=== PATIENT | male | born 1970 | race Caucasian/White ===

== ENCOUNTER 2019-04-29 06:13 | Inpatient (IN) ==
--- NOTE | 2019-04-29 06:38 | PROVIDER DOCUMENTATION ---
HPI-Neurological Disorder - General Stated Complaint: can't walk Time Seen by Provider: 04/29/19 06:18 Source: patient Unable to obtain history due to:: other (pt does not understand some questions/commands, gives vague answers) Allergies/Adverse Reactions: Patient Allergies Allergy/AdvReac Type Severity Reaction Status Date / Time Penicillins Allergy Severe ANAPHYLAXIS Verified 04/29/19 07:47 Home Medications: Home Medication List Medication Instructions Recorded Confirmed Last Taken Type Gabapentin [Neurontin] 300 mg PO TID #0 04/13/16 04/29/19 04/27/19 Rx Iron Fum,Ps Cmp/Vit C/Niacin 1 each PO DAILY 10/31/16 04/29/19 04/27/19 History [Integra Capsule] Sitagliptin Phosphate [Januvia] 100 mg PO DAILY 10/31/16 04/29/19 04/27/19 History Calcium Carbonate [Tums Extra 750 mg PO TID 11/02/16 04/29/19 04/27/19 History Strength] Albuterol Sulfate [Proair Hfa] 2 puff INH PRN PRN 04/29/19 04/29/19 Unknown History Bupropion HCl [Bupropion Xl] 1 tab PO DAILY 04/29/19 04/29/19 04/27/19 History Carvedilol [Coreg] 25 mg PO Q12H 04/29/19 04/29/19 04/27/19 History Clonidine HCl 1 tab PO BID 04/29/19 04/29/19 04/27/19 History Lactulose [Constulose] 15 ml PO TID 04/29/19 04/29/19 04/27/19 History Omeprazole 40 mg PO DAILY 04/29/19 04/29/19 04/27/19 History Valacyclovir [Valtrex] 1 tab PO DIRECTED 04/29/19 04/29/19 Unknown History - History of Present Illness-Neuro Nature of Presenting Problem: pt has had increasing weakness, memory loss for 3 days, was unable to get out of bed today, called EMS. He is a dialysis pt (MWF) Was recently dx with Shingles. Has been started on 2 new meds, not sure of nomes, or why. Saw PCP a week or so ago, was told needed to see neurologist for weakness. No headache nor fever known pharmacy check shows nothing filled since 01/16 Unknown time of onset. Severity: reports: mild Onset/Duration: reports: 3 days ago Timing: reports: getting worse Character of Altered Mental Status: reports: other (says memory is worse) Any recent trauma/injury?: reports: none New weakness or altered sensation location:: reports: general (diffuse) (LE>UE) Cognitive Baseline: alert, oriented x3 Associated Symptoms: reports: trouble walking, weakness. denies: short of breath, headache, nausea, vomiting Similar Symptoms Previously?: No Recently seen or treated by another doctor?: Yes Review of Systems - Adult - REVIEW OF SYSTEMS - ADULT ROS:: not sure of reliability Constitutional: reports: see HPI Eyes: reports: blurred vision (admits no acute change) Ears, Nose, Mouth & Throat: reports: no symptoms reported Cardiovascular: reports: no symptoms reported Respiratory: reports: no symptoms reported Gastrointestinal: reports: no symptoms reported Genitourinary: reports: no symptoms reported Musculoskeletal: reports: see HPI Integumentary: reports: see HPI Neurological: reports: see HPI Psychiatric: reports: no symptoms reported Endocrine: reports: no symptoms reported Past History - Adult - PAST MEDICAL HISTORY-ADULT Review of Records: reports: Nursing Assessment Review, Medications Reviewed, Social history reviewed & non-contributory. Major Childhood Illnesses: reports: denies history Cardiovascular: reports: CHF, HTN, hyperlipidemia Genitourinary: reports: kidney disease Endocrine/Immune: reports: Diabetes - PRIOR SURGERIES/PROCEDURES Surgical/Procedure History: reports: none - PRIOR HOSPITALIZATIONS Prior Hospitalizations: reports: none - IMMUNIZATION STATUS Childhood Immunizations: See Nurse Assessment Flu Vaccine: See Nurse Assessment - FAMILY HISTORY Family History: reviewed, not pertinent Physical Exam- Neurological - Physical Exam-Neuro Initial Vital Signs Reviewed: Yes General Appearance: appears well, mild distress, other (freq says, or appears that does not understand) Eye Exam: bilateral eye: normal inspection, PERRL, EOMI HENMT: normocephalic/atraumatic, moist mucous membranes, normal ENT inspection, pharynx normal Head Injury: no evidence of injury Neck: full range of motion, supple Respiratory: lungs clear, normal breath sounds, no pleuratic chest pain, no respiratory distress, no accessory muscle use Cardiovascular: regular rate, rhythm, no edema, no murmur Abdominal Exam: non tender, soft Peripheral Pulses: radial (R): 2+, radial (L): 2+ 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 CN II-XII intact) Coordination/Gait: other (could not understand to perform) Motor/Sensory: no sensory deficit, other (sl weak on extension of UE, no pronator drift. Could not lift LLE, RLE was weak on extension) Neurologic: motor weakness (see above.) Integumentary: normal color, normal turgor, warm/dry Psych/Mental Status: other (abnl mood, affect was labile. Could not remember many details, many times said did not understand. Many other times, appeared to not understand, or only understood with difficulty after repeating, explaining) - Glascow Coma Scale Best Motor Response: (6) obeys commands Progress - PLAN OF CARE/RESULTS Progress/Plan/Lab Results: Vital Signs - 8 hr 04/29/19 06:16 Temperature 97.9 F Pulse Rate 90 Respiratory Rate 20 Blood Pressure 223/119 O2 Sat by Pulse Oximetry 98 Orders Category Date Time Status Nursing- Obtain EKG ONCE Care 04/29/19 06:42 Completed CHEST-1 VIEW [RAD] Stat Exams 04/29/19 06:[address] HEAD W/O CONTRAST [CT] Stat Exams 04/29/19 06:42 Ordered CBC WITH DIFF [HEME] Stat Lab 04/29/19 06:35 Results COMPREHENSIVE METABOLIC PANEL [CHEM] Stat Lab 04/29/19 06:35 Received URINALYSIS W/POSS RFLX CULT [URINALYSIS] Stat Lab 04/29/19 06:42 Uncollected URINE DRUG SCREEN Stat Lab 04/29/19 06:42 Uncollected EKG [EKG] Stat Ther 04/29/19 06:42 Ordered Result Diagrams: 04/29/19 06:35 04/29/19 07:35 - EKG 1 Time of EKG reading by physician:: 06:32 EKG Read and Signed by:: Guido Cali EKG Interpretation (*Must complete 3 of following elements*): Normal Rate: 88 Rhythm: NSR [place]: normal QRS: normal ST Wave: normal - CT/MRI 1 CT Study: Head Impression: Abnormal, See EMR Report (rt sided lacunar infarct) - CONSULTS/PCP/HOSPITALIST Notification #1 *Consult/PCP/Hospitalist*: Dr Reece Time Discussed: 09:08 Consult Disposition: Will see in ED, Admit - CHANGE OF SHIFT REPORT (ED Provider) 1 Report Given and Care Transferred to:: [facility] Time of Transfer: 07:00 Departure - Departure Date of Disposition Decision: 04/29/19 Time of Disposition Decision: 09:08 DIAGNOSIS: Hyperkalemia, Renal failure (ARF), acute on chronic, CVA (cerebral vascular accident) Disposition: ADMITTED INPATIENT Certified Medical Emergency: Emergent Condition: Fair Referrals and Follow-Ups: William Mercado Jr, MD [Primary Care Provider] - - Critical Care Note This patient required my direct & personal management of CC.: No Attestation - Physician/ WENDI Attestation Patient care was provided by Advanced Practice Provider:: No The physician spent face to face time with patient:: Yes Advanced Practice Provider documentation review:: Supervising physician onsite and consulted in the evaluation and care of this patient. The physician did have a face to face encounter with the patient. - NIH Stroke Scale NIH Type: Initial Evaluation Level of Consciousness: 0-Alert LOC Commands (ask to open & close eyes;make a fist, let go): 2-Both Incorrect (could not understand commands) Best Gaze (horizontal eye movement): 0-Normal Visual (use finger movement, counting or visual threat): 0-No Visual Loss Facial Palsy (show teeth or raise eyebrows & close eyes tght: 0-Symmetrical Movement Motor Function-left arm: 0-Normal Motor Function-right arm: 0-Normal Motor Function-left le-No Effort Against Hammond Motor Function-right le-Drift Limb Ataxia(dvfpwy-[id number]-iomhrx, or heel to [place]): 0-Untestable Sensory(pin prick to face,arms,trunk,legs-compare side/side): 0-No Ataxia Best Language(name item/read sentence.Ex-Down to Earth): 1-Mild to Moderate Aphasia Dysarthria(Pt read words or say words Ex.Mama,Tip-Top,Thanks: 1-Mild-Mod Slurring Words Stroke tPA Guidelines - Inclusion Criteria for IV tPA 18 years old or older: Yes Ischemic stroke with measurable deficit: No Onset <3 hours ago *OR* 3-4.5 hours ago: No
[2019-04-29 07:00] LABS: BASO# 0.05 X1000 (0.0-0.2); BASO% 0.5 % (0.0-0.8); EOS# 0.28 X1000 (0.0-0.7); EOS% 3.1 % (0.0-10.0); LYMPH# 1.91 X1000 (1.2-3.4); LYMPH% 20.9 % (20.5-51.1); MCH 30.9 PG (27-31); MCHC 32.7 g/dL (33-37); MCV 94.6 FL (81-99); MONO% 13.1 % (1.7-9.3); MPV 10.1 FL (7.4-10.4); NEUT% 62.4 % (42.2-75.2); PLT 84 X1000 (130-400); RBC 5.18 XMIL (4.7-6.1); RDW 14.2 % (11.5-14.5); WBC 9.14 X1000 (4.8-10.8)
[2019-04-29] MEDS ORDERED: APRESOLINE IV ONE ×2 (07:03→09:34)
--- NOTE | 2019-04-29 07:32 | Diag Imaging Result Doc PS360 ---
EXAM: CT HEAD W/O CONTRAST INDICATION: AMS TECHNIQUE: This exam was performed using automated exposure control, adjustment of mA or kV according to patient size, and/or use of iterative reconstruction technique. COMPARISON: 03/11/2016 FINDINGS: There is a tiny hypodense focus involving the right basal ganglion suggesting a small lacunar infarct. It was not present on the previous study in 2016. Although it is somewhat difficult to fully characterize given its small size, it has a chronic appearance. Please correlate clinically. There is no definite acute infarct given the limited sensitivity of CT versus MRI, otherwise. There is no discrete intracranial mass, mass effect, or intracranial hemorrhage. There is severe chronic right maxillary sinusitis and milder right ethmoid sinusitis that is similar to the previous study. Surrounding soft tissues and bony structures are essentially unremarkable, otherwise. IMPRESSION: Miniscule lacunar infarct involving the right basal ganglion that is not seen on the previous study. Nonetheless, it appears to be chronic. Please see the above discussion. No definite acute pathology, otherwise. Electronically signed by Ilia Aburto 04/29/2019 7:30 AM
--- NOTE | 2019-04-29 08:04 | Diag Imaging Result Doc PS360 ---
CHEST-1 VIEW - 04/29/2019 INDICATION: AMS COMPARISON: 10/01/2018 FINDINGS: There is pulmonary vascular congestion similar to the prior exam. No infiltrates or edema. Heart size is normal. No pneumothorax or pleural effusion. IMPRESSION: Pulmonary vascular congestion. Electronically signed by William Haas 04/29/2019 8:02 AM
[2019-04-29 08:16] LABS: ALB/GLOB RATIO 0.9; ALBUMIN 4.2 g/dL (3.5-5.0); CALCIUM 9.6 mg/dL (8.8-10.2); TOTAL BILIRUBIN 0.73 mg/dL (0.20-1.00); TOTAL PROTEIN 8.9 g/dL (6.3-8.3)
[2019-04-29 08:35] LABS: POTASSIUM 6.5 mmol/L (3.5-5.1)
[2019-04-29 08:36] LABS: CREATININE 11.2 mg/dL (0.7-1.2)
--- NOTE | 2019-04-29 09:09 | EKG Report ---
Test Performed on : 04/29/2019 06:32:45 AM Test Reason : AMS Blood Pressure : / mmHG Vent. Rate : 088 BPM Atrial Rate : 088 BPM P-R Int : 176 ms QRS Dur : 102 ms QT Int : 366 ms P-R-T Axes : 060 050 058 degrees QTc Int : 442 ms Normal sinus rhythm. Normal ECG When compared with ECG of 22-JUN-2017 11:27, No significant change was found Unconfirmed Result
[2019-04-29] MEDS ORDERED: ASPIRIN PO ONE (09:11)
[2019-04-29] MEDS: APRESOLINE IV PRN (12:12)
[2019-04-29] MEDS ORDERED: TIGHT: 0.2 ML/HR FOR DIALYSIS MISC PRN (12:55)
[2019-04-29] MEDS ORDERED: HEPARIN IV PRN (12:55)
[2019-04-29] MEDS ORDERED: NS 2,000 ML MISC PRN (12:55)
--- NOTE | 2019-04-29 13:57 | NEPHROLOGY CONSULTATION ---
DATE: 04/29/2019 ASSESSMENT: Chronic kidney disease stage 5D and a recent cerebrovascular accident. He has hyperkalemia. We will plan dialysis this morning to address his hyperkalemia. We will use low blood flow and decreased time to 3 hours in order to minimize changes in intracranial pressure. cc: MD Aftab Christopher MD
[2019-04-29] MEDS ORDERED: NS IV ONE ×2 (15:00→20:00)
[2019-04-29] MEDS ORDERED: ZOVIRAX IV ONE ×2 (15:00→20:00)
[2019-04-29] MEDS ORDERED: LABETALOL IV ONE (15:25)
[2019-04-29 15:31] LABS: APPEARANCE CLEAR; WBC BF 0 /cumm
[2019-04-29 15:32] LABS: RBC BF 4 /cumm
--- NOTE | 2019-04-29 16:33 | CONSULTATION ---
DATE OF CONSULTATION: 04/29/2019 HISTORY: Mr. Solomon has had an altered mental state with reported generalized weakness. He is not able to provide a consistent valid history. He told me that he thinks he was doing well a week ago. He started having skin lesions over the right ear and right forearm several days ago. A diagnosis of shingles was made. He has been treated with valacyclovir at low dose due to his chronic renal failure. He reports having headache in the last few days. He believes his vision has been chronically poor but is worse in recent days. He began to feel weak all over. He did not notice weakness in 1 limb or on 1 side of his body. He believes there was never unconsciousness or altered awareness. He presented to the hospital and was admitted. He reports no prior diagnosis of stroke, seizure, serious head injury, illicit drug use, alcohol abuse, medication intoxication. He reports he has never had an episode like this before. He reports he was found to have fever at the dialysis center some time ago, but he is not certain that was recent. He is afebrile here today. He believes he has not been to dialysis in a few days, possibly longer. DATA: Workup here includes noncontrast CT of the head showing tiny old right basal ganglia lacune which was not present on 2016 scan. On my view, the scan does not show definite evidence of cortical inflammation. There is no evidence of bleeding. VITAL SIGNS: Afebrile. Systolic blood pressures have been 240s recently, 260s this morning. LABORATORY: Lab shows WBC 9000, sodium 132, potassium 6.5, creatinine 11.2, BUN 55. There was not urine drug screen reported. MEDICATIONS: Home medicine list in the computer includes albuterol inhaler, bupropion, carvedilol, clonidine, gabapentin 300 mg t.i.d., iron and vitamin, lactulose, omeprazole, Januvia, valacyclovir as above. PHYSICAL EXAMINATION: On exam, Mr. Solomon is supine, awake, alert. His attention seemed to fluctuate. I did not witness obvious hallucinatory behavior or periods of unresponsiveness or altered consciousness. He reported "seeing faces" with no one present. He did not confabulate. He reports inability to recognize bright light in the left eye. He can count fingers inconsistently with the right eye. He was not attentive to testing visual field more carefully. Both pupils react directly to bright light. Extraocular movements are full. Facial motility is symmetric. Tongue is midline, bright red (he reports he recently finished eating red Jell-O). Palate is midline. He can hear. His effort fluctuates significantly on motor testing. Limb tone is symmetric. Plantar response is silent bilaterally. Reflexes are absent at the knees and ankles, trace at the wrists bilaterally. He limb movements were coarse, not fluid. He was accurate without tremor on [id number]-iw-qiiv, but arm movement was very coarse. He was very inconsistent when asked to maintain limbs above the bed against gravity. He was able to raise his left leg, right leg and each arm. He reports inability to recognize pinprick and light touch over the feet. He reports inability to recognize great toe movement when testing proprioception bilaterally. He reports diminished pinprick appreciation over the hands and normal pinprick appreciation over the chin. He was not attentive to sensory testing along the trunk and provided very inconsistent responses posteriorly and anteriorly. He reported more consistent good pinprick appreciation above the clavicle bilaterally. Head is unremarkable. Neck is supple. IMPRESSION: 1. This appears to be a global encephalopathy. Etiology is not clear to me. There may be multiple factors including a component of hypertensive encephalopathy and significant metabolic abnormalities which may be contributing. He was not able to convince me that he takes his medicines correctly or that he has or has not used illicit substance. We might consider EEG later to look for markers for viral encephalitis. We might consider brain MRI when practical, but I do not think he would cooperate now and I am reluctant to sedate him for an MRI at this point. CSF is the clear next step. 2. Clinical evidence of peripheral neuropathy. This might be chronic diabetic neuropathy. Acute idiopathic demyelinating polyneuropathy could explain some of the peripheral nerve deficit, but would not account for the HOT STONE SETTER changes. 3. Very inconsistent sensory findings across the trunk, possible recent onset incontinence. We might consider spine MRI to exclude cord lesion. With concern for zoster or other herpetic HOT STONE SETTER infection, reported recent fever, apparent new onset encephalopathy, we need to go ahead with lumbar puncture. I phoned father who is the contact listed in the chart and was not able to reach him. The patient reports he has a son, but he cannot provide contact information for son. As discussed with Dr. Wilson, we will proceed with LP on an emergency basis. Further plans will depend on CSF report and on his clinical course. I hope encephalopathy will be significantly improved with control of blood pressure. Thanks for asking Neurology to see Mr. Solomon. cc: MD Aftab Brown III, MD MTDD
[2019-04-29 16:40] LABS: GLUCOSE CSF 66 mg/dL (39-75)
[2019-04-29 16:43] LABS: PROTEIN CSF 41.5 mg/dL (15-45)
--- NOTE | 2019-04-29 16:54 | INFECTIOUS DISEASE CONSULT REP ---
DATE: 04/29/2019 CONCLUSION: The patient has shingles involving the right arm and the ear. The shingles on the arm have crusted over. The patient now is complaining of headache and he has an altered mental status and I am concerned that the shingles which is caused by the varicella zoster virus is now involving the patient's brain. RECOMMENDATIONS: I have ordered IV acyclovir to be given to the patient by the pharmacy. I have ordered studies for the cerebral spinal fluid also. PRESENT ILLNESS: I was unable to obtain a history from the patient. No family members present. What I did find was in the computer. He has he developed shingles on his arm arms few days a few days ago and they all have appeared to crust over. He following that had an altered mental status. His CBC shows a white count of 9140, hemoglobin 16, platelet count 84,000 creatinine is 11.2. GFR is 5. Alkaline phosphatase is 138. Chest x-ray shows pulmonary venous congestion. Head CT scan shows a miniscule lunar infarct and chronic maxillary and ethmoid sinusitis. PAST MEDICAL HISTORY: The patient also has congestive heart failure, hypertension, hyperlipidemia, end-stage renal disease for which the patient is on hemodialysis. PAST SURGICAL HISTORY: Positive for creating a left upper extremity AV fistula for dialysis. REVIEW OF SYSTEMS: Unable to be obtained from the patient. PREVIOUS HOSPITALIZATIONS AND OPERATIONS: The information from the emergency room says that the patient does not have surgical or procedure history. However, as mentioned above he does have an AV fistula in his left arm. ALLERGY: Penicillin. HOME MEDICATIONS: Include albuterol inhaler, bupropion, carvedilol, clonidine, gabapentin, lactulose, omeprazole and Valtrex. PHYSICAL EXAMINATION: Vital Signs: Temperature is 98 degrees, pulse 86, respirations 15, blood pressure is 224/106. General: This is an ill-appearing middle-aged male. He is in no acute distress. Head/eyes/ears/nose/throat: No drainage noted from the nose or ears. His sinuses were not tender. I did not see any white patches in his mouth. Neck: The patient seemed to move his neck without having pain. Lungs: Clear to auscultation. Cardiovascular: Regular heart rate. Abdomen: Soft, nontender. Extremities: The patient's left arm has an AV fistula in it and it is functional. Neurologic: The patient at times followed my request to move his extremities and at other times did not. He did talk at times but it did not make sense to me what he was saying. The patient did move his arms and legs to request, but it was mainly only his feet that he moved and not the whole leg and he only minimally moved his arms. The patient was unable to carry on a coherent conversation. Integument: The patient's shingles lesions on the right arm have all crusted over. Thank you for the consult. cc: MD Aftab Salinas MD
--- NOTE | 2019-04-29 17:01 | OPERATIVE NOTE ---
PROCEDURE DATE: 04/29/2019 PROCEDURE: Lumbar puncture was done at the L4 space. Crystal clear fluid was obtained and sent to the lab. Opening pressure was 23 to 24 cm of CSF (he is quite hypertensive). He tolerated LP well. cc: MD Aftab Brown III, MD
--- NOTE | 2019-04-29 19:27 | NEPHROLOGY CONSULTATION ---
DATE: 04/29/2019 REASON FOR CONSULTATION: Assistance with management. Altered mental status. HISTORY OF PRESENT ILLNESS: Mr. Solomon is a 48-year-old white male who is well known to us from the outpatient dialysis arena. He has diabetes, hypertension, COPD. I saw him on last Saturday at the dialysis unit at which time he was complaining of pain on his right elbow. His exam demonstrated multiple erythematous based vesicles over the elbow and extending on the medial surface along the ulna. He also had vesicles on his right ear. I ordered valacyclovir 500 mg daily to his outpatient pharmacy. He has been having a hard time with worsening mental state and confusion and weakness. Ultimately he came to the emergency room today because of these symptoms. He told me that the only muscle he can move are his head. He does describe a headache. He is hallucinating. He is anxious, tearful, etc. He was concerned that he had a stroke. PAST MEDICAL HISTORY: As above. HOME MEDICATIONS: Include gabapentin 300 t.i.d.; this is new, Integra, sitagliptin, calcium carbonate, albuterol, bupropion, clonidine, omeprazole, valacyclovir, lactulose, carvedilol. ALLERGIES: Penicillin. SOCIAL: His father's been helping to take care of him lately. FAMILY HISTORY: Otherwise noncontributory. REVIEW OF SYSTEMS: Otherwise noncontributory. PHYSICAL EXAMINATION: Vital Signs: Blood pressure 224/106, heart rate 86, respirations 15, afebrile. General: He is anxious, tearful, alert white male no in no respiratory distress. Skin: Warm and dry. He has multiple vesicles an discoloration on the right arm. Pupils are equal. Conjunctivae are injected. Oropharynx is clear. Neck: Supple. Neck veins are not visible. He is able to touch his chin to his chest without pain. Heart: PMI nondisplaced. Regular rate and rhythm without gallops or murmurs. Lungs: Have equal breath sounds. No crackles or wheezes. Abdomen: Soft, nontender. Bowel sounds are present. Extremities: No edema, clubbing or cyanosis. Neurologic Examination: He is unable to lift any extremity off the bed but he can move hands and feet. He is able to talk without difficulty. IMPRESSION: Altered mental status. I do not think this is a stroke. I am concerned about him having a viral central nervous system infection versus drug affects from valacyclovir and gabapentin. We will stop these 2 medicines and I have spoken directly with Dr. Wilson and Dr. Gamino for their assistance with management and treatment. He will need dialysis today and we will arrange this. He is moderately hyperkalemic. He did not get his full treatment on Saturday because his shingles were hurting. His blood pressure is markedly abnormal. I will add back oral medication, but he may require IV nicardipine if his pressure cannot be rapidly controlled. cc: MD Aftab Christopher MD
[2019-04-29] MEDS: COREG PO SCH (20:10)
[2019-04-29] MEDS: CATAPRES PO SCH (20:10)
--- NOTE | 2019-04-29 22:34 | HISTORY AND PHYSICAL ---
CHIEF COMPLAINT: Altered mental status, possible stroke. HISTORY OF PRESENT ILLNESS: He is a 48-year-old, white gentleman, was not seen in my office for almost more than one year, 03/19/2018. Obviously, he has been going to dialysis three times a week as per Dr. Sage, on the left side. He started having a rash in the right side. The clinical picture is compatible with some type of shingles. He was brought in while he was treating for shingles with altered mental status, incoherent, not able to follow with verbal commands. Emergency room physicians called me this morning. He has a possible stroke on the right side. I did see the patient in the morning. He was completely confused and not able to follow with verbal commands. His blood pressure was running high. He is due for dialysis. The patient was admitted for altered mental status. In the meantime, Dr. Sage did hemodialysis for hyperkalemia, elevated renal function tests. He was seen by Dr. Gamino, Dr. 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 I have seen the patient a second time in the evening. He is totally coherent, follows with verbal commands. He has some blister rash in the right forearm, right arm. He has only one blister on the tragus of the right ear. It does not appear to be [place] Cali syndrome. There is no involvement of the facial nerve. The distribution of the rash most looks like C5-C6 distribution of the cervical spine. Obviously, the patient had an LP done, started on IV acyclovir, and he is already getting significant improvement. As a result, he has been hospitalized. PAST MEDICAL HISTORY: End-stage kidney disease on hemodialysis three times a week, type 2 diabetes, hypertension, chronic hepatitis C virus, nicotine dependency. PAST SURGICAL HISTORY: Left forearm AV graft. MEDICATIONS: Neurontin 300 t.i.d., Integra 1 capsule daily, Januvia 100 daily, calcium carbonate 750 mg t.i.d., ProAir HFA 1 puff q.6, bupropion 300 mg daily, clonidine 0.1 p.o. b.i.d., Prilosec 40 daily. He was given Valtrex, lactulose 15 mL p.o. b.i.d., Coreg 25 q.12. ALLERGIES: Reported to penicillin. SOCIAL HISTORY: Single, two sons and one daughter. Smoking one pack a day. No alcohol. He was using crystal methamphetamine, quit in February 2016. He is disabled since he is on dialysis. FAMILY HISTORY: Father is [id number], stable. Mom of lung cancer. HEALTH MAINTENANCE: He has not had a physical since last year in my office. He had a flu vaccine in 2018, pneumococcal in 2015, last eye exam in May 2017, by Dr. Whitfield. REVIEW OF SYSTEMS: Initially unable to obtain. In the evening, he is mentally stable. No headache. No vision problem. He is talking on the phone. No neck pain. Cardiopulmonary: No chest pain, shortness of breath. Gastrointestinal: No nausea, vomiting, abdominal pain. He has feelings of weakness and the rash in the right side of the arm. No obvious weakness in the legs and the arms noted. No headaches. No seizures. PHYSICAL EXAMINATION: VITAL SIGNS: Temperature is 97.9 degrees, pulse 68, blood pressure is coming down to 198, and 206 pounds. HEENT: Atraumatic, normocephalic. Pupils equal, reactive to light. He had a small blister on the tragus on the right ear, and blisters noted in the right arm and right forearm. NECK: Supple. CHEST: Bilateral air entry. HEART: Sounds are regular. No murmur. ABDOMEN: Belly is soft, nontender. Good bowel sounds. RECTAL: Deferred. EXTREMITIES: No peripheral edema, cyanosis. NEUROLOGIC: No obvious neurological deficits. INVESTIGATIONS: CBC: White cell count 9.1, hematocrit 49, platelet 84,000. Sodium 132, potassium 6.5, chloride 92, BUN 55, creatinine 11.2. Liver function test was normal. CT head: Minute lacunar infarct of right basal ganglia appears to be chronic. EKG: Normal sinus, no significant changes for ischemia noted, tall P waves noted in the precordial leads. Chest x-ray: Mild congestion, otherwise stable. ASSESSMENT AND PLAN: 1. A 48-year-old, white gentleman, with a known history of chronic kidney disease, on dialysis, came in with altered mental status with shingles on the right arm, C5-C6 distribution, and is not very significant for [place] Cali syndrome. Treating with IV acyclovir by Dr. Melo Wilson. Neurology consult and Dr. Wilson consult was appreciated. 2. End-stage kidney disease. As per Dr. Sage. 3. Chronic hepatitis C infection. Will readdress the issue. 4. Thrombocytopenia. Stable. 5. Hypertension. On Coreg, clonidine, and hydralazine as needed. Since his mental status improved, we can start slowly advancing the diet and reconcile home medications. Appreciate the consultants. Will follow up. cc: Aftab Reece MD
[2019-04-30] MEDS: PRILOSEC PO SCH (06:13)
[2019-04-30] MEDS ORDERED: LACTULOSE PO SCH (09:00)
[2019-04-30] MEDS: COREG PO SCH ×2 (09:12→20:55)
[2019-04-30] MEDS: TUMS EXTRA STRENGTH PO SCH ×3 (09:12→17:03)
[2019-04-30] MEDS: HEMOCYTE PLUS CAPSULE PO SCH (09:13)
[2019-04-30] MEDS: CATAPRES PO SCH ×2 (09:13→20:55)
--- NOTE | 2019-04-30 11:34 | NEPHROLOGY PROGRESS NOTE ---
DATE: 04/30/2019 Subjective: Patient was difficult to arouse. Several attempts of tactile stimuli to arouse him. Denies shortness of breath, nausea and vomiting, chest pain, morning sickness, or changes in appetite. Objective: Vital signs. General: emotional, white male lying in bed with difficulty to arouse. Skin: pale, skin warm and dry with rash identified as scabies to right arm. HEENT: pupils are equal and round reactive, conjunctiva are pink, mucous membranes dry. Neck: external jugular vein engorged with hepatojugular reflux. Cardiovascular: irregular rhythm with normal rate, no gallops noted Lungs: clear bilaterally with equal excursion, tachypneic, labored breathing Abdomen: soft, nontender, nondistended, bowel sounds present. Extremities: trace bilateral upper extremity edema with left fistula noted. Palpable thrill. No clubbing or cyanosis. : none observed Neurologic: drowsy, oriented to person and place at time of the exam but voices periods of confusion. Labs: pending-intake 390, output 2873. Impression: Chronic kidney disease stage 5D. He received inpatient dialysis yesterday after arriving to the hospital. Removed 2.8L. Altered mental status. Improved. Voices he still feels confused at times and unable to recall exact events over the last 2 days. Infectious disease and neurology on board. AFB smear negative. LP (-) Electrolytes. Hyperkalemic. Dialysis treatment yesterday. Acid base balance. In target. Anemia. In Target. Blood pressure. Improving on oral medication. cc: MD Aftab Christopher MD [facility]
--- NOTE | 2019-04-30 12:22 | PROGRESS NOTE ---
DATE: 04/30/2019 SUBJECTIVE: Mr. Solomon reports not much headache now. He believes he is feeling better than yesterday. He notes that he can move his limbs more freely today. He does not report recent hallucination. He does report that he has chronic poor vision, much worse in the left eye chronically, and he does not notice definite new vision loss. OBJECTIVE: On exam, he is awake and alert. He is much more attentive and appropriate today. He cooperated with limited visual field exam, and appears to have full field with the right eye and count fingers vision with uncertain field in the left eye. I observed him using his arms and legs purposefully today than yesterday. He did perform tasks with the arms with much more fluid, less coarse movement than noted yesterday. Neck continues supple. CSF reports are unremarkable thus far. No WBC, 4 RBC, protein 41.5, glucose 66, cryptococcal antigen negative, Gram stain negative. CSF cultures showed no growth at this point. He continues afebrile. Systolic blood pressures have been recorded 150s-170s overnight and 120s this morning. I do not have a definite explanation for his neurologic status. I suspect he has a baseline diabetic neuropathy, which confounds evaluation for possibility of superimposed acute/subacute neuropathy such as Guillain-Wooster. His encephalopathy is much improved today and I suspect that is related to improved blood pressure control. I do not have any new thoughts or new suggestions today. We might consider EEG and brain MRI electively, depending on his clinical course. Thanks for asking Neurology to see Mr. Solomon. cc: MD Aftab Brown III, MD MTDD
[2019-04-30] MEDS ORDERED: ZOVIRAX IV SCH (17:00)
[2019-04-30] MEDS ORDERED: NS IV SCH (17:00)
--- NOTE | 2019-04-30 17:52 | INFECTIOUS DISEASE PROGRESS NO ---
DATE: 04/30/2019 PRESENT ILLNESS: Mr. Solomon has shingles which are healing to the right arm and ear. He also had some altered mental status which has improved. MEDICATIONS: He has been receiving IV acyclovir 350 mg daily. PHYSICAL EXAMINATION: Vital Signs: Temperature is 98.1 degrees, pulse rate 76, respiratory rate 18, blood pressure 123/74, O2 saturation is 98% on room air. General: This is a chronically ill- appearing, middle-aged gentleman. He is sitting up on the side of the bed currently, in no acute distress. HEENT: Atraumatic, normocephalic. Oral mucous membranes are pink and moist. Conjunctivae are pink. Neck: Supple. Trachea is midline. Cardiovascular: Heart rate and rhythm are regular. Normal sinus rhythm on the monitor. Respiratory: Lung sounds are clear to auscultation bilaterally. No work of breathing is noted. Abdomen: Soft, obese, and nontender. Bowel sounds are active. Neurologic: He is awake, alert, and oriented. He is complaining of stinging pain to his lower extremities. Able to move around independently. Integumentary: Skin is warm and dry with scattered, infrequent crusted lesions to the right forearm and a couple to the right ear. There is an AV fistula in place to the left forearm. That sites has a good thrill and bruit. LABORATORY AND X-RAY: None available today. However, the spinal tap CSF results show clear fluid with 0 WBCs, 66 glucose, and 41.5 total protein. Cryptococcal antigen is negative and no AFB was seen. The Gram stain of the cerebrospinal fluid showed no bacteria and so far the preliminary culture shows no growth. No imaging reports today. ASSESSMENT AND PLAN: Mr. Solomon has been receiving IV acyclovir for concerns about a possible shingles related altered mental status. After seeing the results of the cerebral spinal fluid, we will go ahead and discontinue the IV acyclovir. The patient's altered mental status seems to have resolved. He is doing much better and has received dialysis with generalized improvement. We will check a HSV by PCR as well his CSF cultures. At this time we will go ahead and sign off but be available to see the patient on an as-needed basis. These plans have been discussed with and recommended by Dr. Wilson. COMORBIDITIES: For Mr. Solomon include congestive heart failure, end-stage renal disease with hemodialysis, and cigarette smoking. Dictated by CHEMA Garcia for Melo Wilson MD cc: MD Aftab Salinas MD
[2019-04-30] MEDS ORDERED: COREG PO SCH (20:45)
--- NOTE | 2019-04-30 20:52 | PROGRESS NOTE ---
DATE: 04/30/2019 SUBJECTIVE: Patient's mental status is improving. He is able to recognize me. He has not seen me for more than a year and a half. Rashes on the right arm slowly blistering up. He is receiving IV acyclovir 350 mg daily. His mental status got better after dialysis. REVIEW OF SYSTEMS: None reported. OBJECTIVE: Vital Signs: Stable. HEENT: Within normal limits. Neck: Supple. Chest: Clear. Heart sounds are regular. Belly is soft, nontender. No obvious deficits. LABORATORY AND DIAGNOSTIC DATA: Lumbar puncture: White cell count 0. CSF, glucose is normal, protein is normal. Cryptococcal antigen is negative. ASSESSMENT AND PLAN: 1. Altered mental status due to metabolic encephalopathy. Improving. 2. Shingles on the right arm. Treated with acyclovir, now which is discontinued after the lumbar puncture findings are reassuring. 3. Hypertension. On Coreg and clonidine, hydralazine as needed. 4. End-stage kidney disease. Dialysis as per Dr. Sage. We will reconcile home medications. I appreciate the consultations Dr. Gamino, will repeat MRI of the brain, EEG based on his clinical course, and will follow up. LEVEL OF DOCUMENTATION: 25 minutes. cc: Aftab Reece MD MTDGiovanna
[2019-04-30] MEDS ORDERED: CATAPRES PO SCH (21:00)
[2019-05-01] MEDS: PRILOSEC PO SCH (06:21)
[2019-05-01] MEDS ORDERED: HEPARIN IV PRN (06:44)
[2019-05-01] MEDS ORDERED: NS 2,000 ML MISC PRN (06:44)
[2019-05-01] MEDS ORDERED: TIGHT: 0.2 ML/HR FOR DIALYSIS MISC PRN (06:44)
[2019-05-01] MEDS: JANUVIA PO SCH (10:04)
[2019-05-01] MEDS: CATAPRES PO SCH ×2 (10:04→20:07)
[2019-05-01] MEDS: NEURONTIN PO SCH ×2 (10:04→20:08)
[2019-05-01] MEDS: TUMS EXTRA STRENGTH PO SCH ×3 (10:04→18:14)
[2019-05-01] MEDS: COREG PO SCH ×2 (10:04→20:08)
[2019-05-01] MEDS: HEMOCYTE PLUS CAPSULE PO SCH (10:05)
[2019-05-01] MEDS: WELLBUTRIN XL PO SCH (10:05)
--- NOTE | 2019-05-01 10:34 | PROGRESS NOTE ---
DATE: 05/01/2019 SUBJECTIVE: Mr. Solomon reports headache. He has not noted recent hallucination. His blood pressure is elevated, systolic is greater than 200 this morning. CSF reports continue negative. OBJECTIVE: On exam, he is awake, alert, attentive. He answered questions appropriately, but responses were generally slower and a little bit more inconsistent than yesterday. I observed him using his arms and legs purposefully. I encouraged him to be aggressive with management of his medical problems. I remain optimistic that he will be improved mentally and that headache will also improve with control of blood pressure. If he has problems with headache or cognitive function while blood pressure control is maintained, I will be glad to see him for those problems. Thanks for asking Neurology to see Mr. Solomon. cc: MD Aftab Brown III, MD
--- NOTE | 2019-05-01 16:46 | NEPHROLOGY PROGRESS NOTE ---
DATE: 05/01/2019 SUBJECTIVE: He is a little more confused again today though not like he was on day 1. He states he has been up out of bed to the bathroom. Not eating well. OBJECTIVE: Vital Signs: Blood pressure 184/101, heart rate 68, respirations 20, afebrile. General: No acute distress. Skin: Warm and dry. Neck: Neck veins are not distended. Heart: Regular. No gallops or murmurs. Lungs: Equal. No crackles. Abdomen: Soft, nontender. Extremities: No edema. IMPRESSION: 1. Chronic kidney disease 5D. He will have his routine dialysis today. 2. Altered mental status. It looks like the shingles is not an important part of his altered mental status. His IV acyclovir has been discontinued. PCR was negative. We will focus on his blood pressure management and see if this helps with his altered mental status. cc: MD Aftab Christopher MD
[2019-05-01] MEDS: APRESOLINE PO SCH (18:14)
--- NOTE | 2019-05-01 20:40 | PROGRESS NOTE ---
DATE: 05/01/2019 SUBJECTIVE: The patient is going for dialysis. He is awake. He said his head is not right. He has confabulation. He said legs are hurting. He wants his home medicines back. He tried to quit smoking. Rash in the right arm is stable. Obviously, IV acyclovir was discontinued after PCR was negative for herpes infection. OBJECTIVE: Temperature is 98 degrees, pulse 67, blood pressure is running high. Weight 193 pounds.HEENT: He recognized me and he is not right. He is able to follow with verbal commands. Chest: Clear. Heart sounds are regular. Belly is soft, nontender. No obvious deficits. LABORATORY DATA: CSF was negative. PCR was negative for herpes infection. ASSESSMENT AND PLAN: 1. Altered mental status due to metabolic encephalopathy. 2. Rule out herpes rash in the right arm. It looks like shingles, was treated. 3. Tobacco abuse. Try to wean off the bupropion. 4. Chronic neuropathy pain in both legs. Started on gabapentin. 5. Hypertension. Will use the Coreg and clonidine, and hydralazine as needed, and optimize the treatment for blood pressure. 6. Type 2 diabetes. On Januvia. 7. Constipation. On lactulose. 8. History of hepatitis C. Stable. 9. End-stage kidney disease. On dialysis as per Dr. Sage. If things do not get better over the weekend, consider MRI of the brain, EEG. Will continue to monitor over the weekend. LEVEL OF DOCUMENTATION: 25 minutes. cc: Aftab Reece MD
[2019-05-02] MEDS: APRESOLINE IV PRN (04:44)
[2019-05-02] MEDS: PRILOSEC PO SCH (06:31)
[2019-05-02] MEDS: APRESOLINE PO SCH ×3 (08:24→18:18)
[2019-05-02] MEDS: HEMOCYTE PLUS CAPSULE PO SCH (08:24)
[2019-05-02] MEDS: COREG PO SCH ×2 (08:25→20:21)
[2019-05-02] MEDS: JANUVIA PO SCH (08:25)
[2019-05-02] MEDS: NEURONTIN PO SCH ×4 (08:25→20:21)
[2019-05-02] MEDS: CATAPRES PO SCH ×2 (08:26→20:22)
[2019-05-02] MEDS: TUMS EXTRA STRENGTH PO SCH ×3 (08:26→18:18)
[2019-05-02] MEDS: WELLBUTRIN XL PO SCH (09:21)
--- NOTE | 2019-05-02 11:24 | PROGRESS NOTE ---
DATE: 05/02/2019 Vital signs stable with temperature 98 degrees, heart rate 71, respiration 18, blood pressure 193/77, O2 saturation on room air 95%. The patient is diabetic and has end stage renal disease. He developed mental change requiring admission. His mental status has improved over the last few days. He had lesions on the right arm suggestive of herpes. Studies, antibodies were negative. Spinal fluid revealed no growth. Gram stain of the spinal fluid showed no white cells or bacteria. He answers questions appropriately. Blood sugar has been stable on p.o. medicines. He has been up to the bathroom and ate fairly well this morning. He has neuropathy of his legs and is on gabapentin. PLAN: Continue current therapy. He may be able to go home Saturday if there is continued improvement. cc: MD Aftab Messer MD
[2019-05-02] MEDS: NORVASC PO SCH (15:14)
[2019-05-02] MEDS: TEARISOL OPH SOLUTION BOTH EYES SCH (20:21)
[2019-05-03] MEDS: APRESOLINE IV PRN (00:38)
[2019-05-03] MEDS: PRILOSEC PO SCH ×2 (05:10→05:42)
[2019-05-03] MEDS: TEARISOL OPH SOLUTION BOTH EYES SCH ×2 (08:04→20:02)
[2019-05-03] MEDS: HEMOCYTE PLUS CAPSULE PO SCH (08:05)
[2019-05-03] MEDS: NORVASC PO SCH (08:06)
[2019-05-03] MEDS: COREG PO SCH ×2 (08:06→20:01)
[2019-05-03] MEDS: APRESOLINE PO SCH ×3 (08:06→16:59)
[2019-05-03] MEDS: CATAPRES PO SCH ×2 (08:06→20:01)
[2019-05-03] MEDS: NEURONTIN PO SCH ×3 (08:06→20:01)
[2019-05-03] MEDS: WELLBUTRIN XL PO SCH (08:06)
[2019-05-03] MEDS: JANUVIA PO SCH (08:06)
[2019-05-03] MEDS: TUMS EXTRA STRENGTH PO SCH ×3 (08:07→17:00)
--- NOTE | 2019-05-03 10:47 | PROGRESS NOTE ---
DATE: 05/03/2019 Vital signs stable with temperature 98.3 degrees, heart rate 70, respirations 16, blood pressure 165/80, O2 saturation on room air of 98%. Telemetry has been stable. Patient continues to be alert and oriented. Blood sugar was a little low this morning at 62. He has been ambulatory. He felt a little dizzy yesterday but is feeling well this morning. PLAN: Continue current therapy and consider discharge tomorrow. Telemetry is discontinued. cc: MD Aftab Messer MD
[2019-05-04] MEDS: APRESOLINE IV PRN (00:53)
[2019-05-04 04:30] VITALS: BP 173/84
[2019-05-04] MEDS: PRILOSEC PO SCH ×2 (05:11→11:49)
[2019-05-04] MEDS ORDERED: HEPARIN IV PRN (06:08)
[2019-05-04] MEDS ORDERED: NS 2,000 ML MISC PRN (06:08)
[2019-05-04] MEDS ORDERED: TIGHT: 0.2 ML/HR FOR DIALYSIS MISC PRN (06:08)
--- NOTE | 2019-05-04 08:43 | NEPHROLOGY PROGRESS NOTE ---
DATE: 05/04/2019 Subjective: Patient lying in bed receiving dialysis. Denies shortness of breath, nausea and vomiting, chest pain, morning sickness, or changes in appetite. Objective: Vital signs.Temperature 98.0, pulse 70, respirations 18, blood pressure 173/84, 02 95% on room air. General: middle aged man in no acute distress Skin: pale, skin warm and dry with rash identified as scabies to right arm that is scabbed over. HEENT: pupils are equal and round reactive, conjunctiva are pink. Neck: positive for JVD with hepatojugular reflux. Cardiovascular: regular rate and rhythm, no murmurs or gallops noted Lungs: clear bilaterally with equal excursion Abdomen: soft, nontender, nondistended, bowel sounds present. Extremities: trace bilateral upper extremity edema with left fistula noted. Palpable thrill. No clubbing or cyanosis. : none observed Neurologic: oriented to person and place and time Labs: -intake 870/ output 0 Impression: Chronic kidney disease stage 5D. He Is receiving routine hemodialysis today. No uremic symptoms present. Electrolytes. No new labs Acid base balance. No new labs Anemia. No new labs Blood pressure. Above target. Receiving Hemodialysis today. Continue current medications. Shingles. Rash is much better. Almost resolved. Altered mental state. Back to baseline. cc: MD Aftab Christopher MD MTDD
[2019-05-04] MEDS: CATAPRES PO SCH (11:47)
[2019-05-04] MEDS: WELLBUTRIN XL PO SCH (11:47)
[2019-05-04] MEDS: COREG PO SCH (11:47)
[2019-05-04] MEDS: JANUVIA PO SCH (11:47)
[2019-05-04] MEDS: HEMOCYTE PLUS CAPSULE PO SCH (11:47)
[2019-05-04] MEDS: TUMS EXTRA STRENGTH PO SCH (11:48)
[2019-05-04] MEDS: NEURONTIN PO SCH (11:48)
[2019-05-04] MEDS: TEARISOL OPH SOLUTION BOTH EYES SCH (11:48)
[2019-05-04] MEDS: NORVASC PO SCH (11:48)
[2019-05-04] MEDS: APRESOLINE PO SCH (11:48)
--- NOTE | 2019-05-05 21:34 | DISCHARGE SUMMARY ---
ADMISSION DATE: 04/29/2019 DISCHARGE DATE: 05/04/2019 DISCHARGING DIAGNOSIS: Altered mental status due to metabolic encephalopathy. SECONDARY DIAGNOSES: 1. Hypertension. 2. End-stage kidney disease, on hemodialysis 3 times a week, as per Dr. Sage, with left arm AV graft. 3. Right C5-C6 shingles. 4. Chronic hepatitis C virus. 5. Nicotine dependency. 6. Type 2 diabetes. 7. Thrombocytopenia. CONSULTS: 1. Dr. Sage. 2. Dr. Gamino. 3. Dr. Wilson. PROCEDURES: 1. Dialysis. 2. Lumbar puncture. Clear fluid; no growth noted. Varicella zoster virus DNA PCR was negative. No acid-fast bacilli noted. Herpes DNA PCR was negative. Cryptococcal antigen was negative. Basically normal CSF analysis. RADIOLOGY: 1. CT head: Miniscule lacunar infarct in the right basal ganglia, which is chronic. 2. Chest x-ray: Stable. BRIEF HISTORY: Please see the H and P that was done on 04/29/2018. In brief, he is a 48-year-old white gentleman who was not seen in my office for a while. He was basically admitted to the hospital after he was found to have a rash in the right arm, consistent with shingles, treated with valacyclovir basically. After that, he started having altered mental status, confusion, and not able to recognize. He came to the emergency room. Initially thought he had a possible stroke versus infectious etiology from the shingles. Appropriate consult was obtained. Further workup revealed he did not have any evidence of encephalitis. CT head: Mild lacunar infarct. He has chronic headaches after stopping smoking with bupropion. His mental status much improved after control of the blood pressure and after dialysis. He continues to improve with a rash on the right side. He has some neuropathy pain in both legs. He was not seen in my office for a while. He needs to work up with chronic hepatitis C evaluation of diabetes. The patient got better and was seen after dialysis. Plan of care discussed with Dr. Sage. At this time, there is no need to repeat MRI, carotid Dopplers. We will continue to monitor as an outpatient. LABORATORY DATA: CBC: White cell count 9.1, hematocrit 49, platelets 84,000. Last platelet count 204,000. Initial sodium 132, potassium 6.5, BUN 55, creatinine 11.2, total protein 8.9. DISCHARGE INSTRUCTIONS: 1. Last pneumococcal vaccine 23 was given in 2016. Initiated vaccination protocol prior to the discharge. 2. Gabapentin 300 p.o. b.i.d. 3. Integra 1 capsule daily. 4. Januvia 100 daily. 5. Tums 750 t.i.d. 6. ProAir 1 puff as needed. 7. Bupropion 300 mg daily. 8. Clonidine 0.1 p.o. b.i.d. 9. Prilosec 40 daily. 10. Lactulose 15 mL t.i.d. 11. Coreg 25 p.o. q.12. 12. Follow up in my office in 2 weeks for maintenance treatment for A1c, lipid profile, and hepatitis C. He needs to evaluate genotype, viral load. He was referred to Dr. Mckeon for treatment. I have not seen the followup for a while, and maintenance treatment with dialysis with Dr. Sage. cc: MD Dr. Alona Stockton Dr., Dr.
== END 2019-05-04 13:08 | disposition home health service (06) | DRG 595 ==
LOC: SUPCPDRO → ED 06:13 → 3N 09:22 → 1N 05-01 16:17
PROVIDERS: ADMIT Internal Medicine; ATTEND Internal Medicine

== ENCOUNTER 2019-05-14 17:20 | Inpatient (IN) ==
[2019-05-14] MEDS ORDERED: NS 1,000 ML IV ONE (18:00)
[2019-05-14] MEDS ORDERED: LABETALOL IV ONE ×2 (18:00→20:59)
[2019-05-14] MEDS ORDERED: APRESOLINE IV ONE ×2 (18:00→19:46)
--- NOTE | 2019-05-14 18:24 | PROVIDER DOCUMENTATION ---
This chart was entered by [place] Scribe, acting as scribe for Vinay Mcpherson MD. HPI-General Adult - General Source: patient - History of Present Illness -Gen Adult Nature of Presenting Problems: 48 yowm presents to the ed with c/o elevated BP and his medication is not bringing it down. pt sts 2 weeks prior had a CVA and still has rt sided weakness in extremities from CVA. pt has frontal [place] and on exam BP is 236/122. pt is a dialysis pt Location of Pain/Injury: reports: head ([place] frontal) Quality of Pain: reports: throbbing Severity: reports: moderate Onset/Duration: reports: this morning Timing: reports: still present, constant Context/Activities at Onset: reports: light activity Modifying Factors: improves with: nothing Associated Symptoms: reports: headaches. denies: back/neck pain, chest pain, nausea, shortness of breath, vomiting Similar Symptoms Previously?: Yes (elevated BP) Recently seen or treated by another doctor?: Yes (had CVA 2 weeks prior) <Vinay Mcpherson - Last Filed: 05/14/19 18:24> <Maryann Elizalde - Last Filed: 05/15/19 00:03> - General Chief Complaint: B/P Problems Stated Complaint: BP HIGH Time Seen by Provider: 05/14/19 17:53 Allergies/Adverse Reactions: Patient Allergies Allergy/AdvReac Type Severity Reaction Status Date / Time Penicillins Allergy Severe ANAPHYLAXIS Verified 05/14/19 18:16 Home Medications: Home Medication List Medication Instructions Recorded Confirmed Last Taken Type Gabapentin [Neurontin] 300 mg PO TID #0 04/13/16 05/14/19 05/14/19 Rx Iron Fum,Ps Cmp/Vit C/Niacin 1 each PO DAILY 10/31/16 05/14/19 05/14/19 History [Integra Capsule] Sitagliptin Phosphate [Januvia] 100 mg PO DAILY 10/31/16 05/14/19 05/14/19 History Calcium Carbonate [Tums Extra 750 mg PO TID 11/02/16 05/14/19 05/14/19 History Strength] Albuterol Sulfate [Proair Hfa] 2 puff INH PRN PRN 04/29/19 05/14/19 05/14/19 History Bupropion HCl [Bupropion Xl] 1 tab PO DAILY 04/29/19 05/14/19 05/14/19 History Carvedilol [Coreg] 25 mg PO Q12H 04/29/19 05/14/19 05/14/19 History Clonidine HCl 1 tab PO BID 04/29/19 05/14/19 05/14/19 History Omeprazole 40 mg PO DAILY 04/29/19 05/14/19 05/14/19 History Review of Systems - Adult - REVIEW OF SYSTEMS - ADULT Constitutional: denies: chills, fever Eyes: reports: no symptoms reported Ears, Nose, Mouth & Throat: reports: no symptoms reported Cardiovascular: denies: chest pain, palpitations Respiratory: denies: cough, shortness of breath, wheezing Gastrointestinal: denies: abdominal pain, diarrhea, nausea, vomiting Genitourinary: reports: no symptoms reported Musculoskeletal: reports: see HPI, muscle weakness (rt sided from past CVA) Integumentary: reports: no symptoms reported Neurological: reports: see HPI, headache/migraines. denies: slurred speech, syncope Psychiatric: reports: no symptoms reported Endocrine: reports: no symptoms reported Hematologic/Lymphatic: reports: no symptoms reported Allergic/Immunologic: reports: no symptoms reported All Other Systems: Reviewed and Negative <Vinay Mcpherson - Last Filed: 05/14/19 18:24> Past History - Adult - PAST MEDICAL HISTORY-ADULT Review of Records: reports: Old Records Reviewed, Nursing Assessment Review, Medications Reviewed, Social history reviewed & non-contributory. Major Childhood Illnesses: reports: denies history Cardiovascular: reports: CHF, HTN, hyperlipidemia Respiratory: reports: denies history Gastrointestinal: reports: denies history Genitourinary: reports: dialysis, ESRD, kidney disease Musculoskeletal: reports: denies history Neurological: reports: CVA, stroke deficits (rt sided weakness in RUE RLE) Psychiatric: reports: denies history Endocrine/Immune: reports: Diabetes Diabetes Type: Type 2 Other Conditions: reports: denies history - PRIOR SURGERIES/PROCEDURES Surgical/Procedure History: reports: reviewed, not pertinent, other (dialysis fistula placed) - PRIOR HOSPITALIZATIONS Prior Hospitalizations: reports: none - IMMUNIZATION STATUS Childhood Immunizations: See Nurse Assessment Flu Vaccine: See Nurse Assessment - FAMILY HISTORY Family History: reviewed, not pertinent - SOCIAL HISTORY Smoking: quit greater than 1 year Substance Use: denies Living Situation: family <Vinay Mcpherson - Last Filed: 05/14/19 18:24> Physical Exam-General - PHYSICAL EXAM-ADULT Initial Vital Signs Reviewed: Yes (BP 216/104) - CONSTITUTIONAL General Appearance: appears well, alert, mild distress, anxious - EYES Eyes: PERRL/EOMI, pink conjunctivae - HEAD, EARS, NOSE, MOUTH & THROAT HENMT: moist mucous membranes - NECK Neck: non-tender, full range of motion, supple, normal inspection - RESPIRATORY Respiratory: chest non-tender, lungs clear, normal breath sounds - CARDIOVASCULAR Cardiovascular: normal peripheral pulses, regular rate, rhythm - CHEST (BREASTS) Chest/Breast: deferred - GASTROINTESTINAL (ABDOMEN) Abdominal Exam: normal bowel sounds, non tender, soft - GENITOURINARY Male Genitalia: deferred Rectal Exam: deferred Hemoccult Exam: deferred - LYMPHATIC Lymphatic: no adenopathy - MUSCULOSKELETAL Back Exam: normal inspection, no CVA tenderness, no vertebral tenderness Extremity: normal capillary refill, pelvis stable, other (dialysis shunt in LUE and weakness noted from CVA 2 week earlier RUE RLE) - SKIN Integumentary: normal color, normal turgor, warm/dry - NEUROLOGIC Neurologic: motor weakness (RUE and RLE from past CVA). negative: facial droop - PSYCHIATRIC Psych/Mental Status: normal mood/affect, normal thought content, normal thought process, oriented x 3, anxious <Vinay Mcpherson - Last Filed: 05/14/19 18:24> Progress - PLAN OF CARE/RESULTS Progress/Plan/Lab Results: Vital Signs - 8 hr 05/14/19 17:40 Temperature 97.6 F Pulse Rate 70 Respiratory Rate 18 Blood Pressure 216/104 O2 Sat by Pulse Oximetry 100 Orders Category Date Time Status CBC WITH ELECTRONIC DIFF [HEME] Stat Lab 05/14/19 17:43 Uncollected CK PROFILE [SP CHEM] Stat Lab 05/14/19 17:43 Uncollected COMPREHENSIVE METABOLIC PANEL [CHEM] Stat Lab 05/14/19 17:43 Uncollected EKG [EKG] Stat Ther 05/14/19 17:42 Ordered - REASSESSMENT Reassessment #1 Time Reassessed: 18:25 Status: unchanged (IV Hydralaizine and Labetalol ordered for HYPERTENSION. OLD CHART REVIEWED from recent admission) - CHANGE OF SHIFT REPORT (ED Provider) 1 Report Given and Care Transferred to:: Tonio Time of Transfer: 19:00 Items Pending: Labs, XRAY Results, CT/MRI Results, Pain Control (and BP control) <Vinay Mcpherson - Last Filed: 05/14/19 18:24> - PLAN OF CARE/RESULTS Progress/Plan/Lab Results: Vital Signs - 8 hr 05/14/19 17:40 Temperature 97.6 F Pulse Rate 70 Respiratory Rate 18 Blood Pressure 216/104 O2 Sat by Pulse Oximetry 100 Laboratory Results - last 24 hr 05/14/19 05/14/19 05/14/19 18:36 18:36 18:36 WBC 6.80 RBC 5.11 Hgb 15.9 Hct 49.9 MCV 97.7 MCH 31.1 H MCHC 31.9 L RDW Std Deviation 15.1 H Plt Count 90 L MPV 10.3 Immature Gran % (Auto) 0.0 Neut % (Auto) 73.2 Lymph % (Auto) 16.0 L Isabela % (Auto) 8.1 Eos % (Auto) 2.1 Baso % (Auto) 0.6 Immature Gran # (Auto) 0.00 Neut # (Auto) 4.98 Lymph # (Auto) 1.09 L Isabela # (Auto) 0.55 Eos # (Auto) 0.14 Baso # (Auto) 0.04 PT INR Sodium 133 L Potassium 5.9 H Chloride 94 L Carbon Dioxide 23 L Anion Gap 16 BUN 33 H Creatinine 7.7 H Estimated GFR/1.73 m2 8 BUN/Creatinine Ratio 4 Glucose 127 H Calculated Osmolality 275 Calcium 9.5 Magnesium 2.4 Total Bilirubin 0.47 AST 40 H ALT 52 H Alkaline Phosphatase 174 H Creatine Kinase 59 Troponin T Ivk-F-Zlokjxuxjcv Pept 83661 H Total Protein 8.0 Albumin 4.3 Globulin 3.7 Albumin/Globulin Ratio 1.2 05/14/19 05/14/19 18:36 18:36 WBC RBC Hgb Hct MCV MCH MCHC RDW Std Deviation Plt Count MPV Immature Gran % (Auto) Neut % (Auto) Lymph % (Auto) Isabela % (Auto) Eos % (Auto) Baso % (Auto) Immature Gran # (Auto) Neut # (Auto) Lymph # (Auto) Isabela # (Auto) Eos # (Auto) Baso # (Auto) PT 12.5 INR 0.93 Sodium Potassium Chloride Carbon Dioxide Anion Gap BUN Creatinine Estimated GFR/1.73 m2 BUN/Creatinine Ratio Glucose Calculated Osmolality Calcium Magnesium Total Bilirubin AST ALT Alkaline Phosphatase Creatine Kinase Troponin T 0.098 H Dgo-B-Zrrygcgkqvb Pept Total Protein Albumin Globulin Albumin/Globulin Ratio Orders Category Date Time Status CHEST-PORTABLE [RAD] Stat Exams 05/14/19 17:[address] HEAD W/O CONTRAST [CT] Stat Exams 05/14/19 17:59 Completed CBC WITH ELECTRONIC DIFF [HEME] Stat Lab 05/14/19 18:36 Completed CK PROFILE [SP CHEM] Stat Lab 05/14/19 18:36 Completed COMPREHENSIVE METABOLIC PANEL [CHEM] Stat Lab 05/14/19 18:36 Completed MAGNESIUM [CHEM] Stat Lab 05/14/19 18:36 Completed PRO B-NATRIURETIC PEPTIDE Stat Lab 05/14/19 18:36 Completed PROTIME WITH INR [COAG] Stat Lab 05/14/19 18:36 Completed TROPONIN T Stat Lab 05/14/19 18:36 Completed 0.9% Sodium Chloride Inj [Ns] 1,000 ml Med 05/14/19 18:00 Active IV 75 mls/hr Clonidine [Catapres] Med 05/14/19 22:27 Discontinued 0.2 mg PO NOW ONE Hydralazine [Apresoline] Med 05/14/19 18:00 Discontinued 10 mg IV NOW ONE Hydralazine [Apresoline] Med 05/14/19 19:46 Discontinued 10 mg IV NOW ONE Labetalol Med 05/14/19 18:00 Discontinued 20 mg IV NOW ONE Labetalol Med 05/14/19 20:59 Discontinued 20 mg IV NOW ONE Nitroglycerin Med 05/14/19 20:58 Discontinued 1 inch TOP NOW ONE Ondansetron [Zofran] Med 05/14/19 21:21 Discontinued 4 mg IV NOW ONE EKG [EKG] Stat Ther 05/14/19 17:42 Draft Patient signed out to me from Dr Mcpherson pending CT, labs and better BP control. Labs showing results consistent with baseline. Troponin is chronically elevated and patient is not having any chest pain. He is ESRD which will also elevate this. He has been given hydralazine 10mg x2 doses, labetalol 20mg IV, nitropaste 1 inch and still BP is only decreased to 196/111. Patient has now become nauseous and has had a [place]. Spoke to Dr Lugo who requested give him a dose of clonidine and will admit patient. Further orders to be placed by their team. Result Diagrams: 05/14/19 18:36 05/14/19 18:36 - CONSULTS/PCP/HOSPITALIST Notification Time Discussed: 22:29 Reason/Comments: Dr Lugo Consult Disposition: Admit <Maryann Elizalde - Last Filed: 05/15/19 00:03> Departure - Critical Care Note This patient required my direct & personal management of CC.: Yes Total Time (mins): 40 ([facility]/Renal systems) Critical Care Statement: This patient required my direct personal management to treat or rule out processes, the absence of which, could potentiallly result in sudden, clinically significant life or limb threatening deterioration. <Vinay Mcpherson - Last Filed: 05/14/19 18:24> - Departure Date of Disposition Decision: 05/14/19 Time of Disposition Decision: 22:28 Certified Medical Emergency: Emergent <Maryann Elizalde - Last Filed: 05/15/19 00:03> - Departure DIAGNOSIS: Hypertensive urgency, malignant Disposition: ADMITTED INPATIENT 09 Condition: Stable Referrals and Follow-Ups: Charan Reece MD [Primary Care Provider] - Attestation - Physician/ WENDI Attestation Patient care was provided by Advanced Practice Provider:: No The physician spent face to face time with patient:: Yes Advanced Practice Provider documentation review:: Supervising physician onsite and consulted in the evaluation and care of this patient. The physician did have a face to face encounter with the patient. <Vinay Mcpherson - Last Filed: 05/14/19 18:24> This chart was documented by the indicated scribe, ([place] Scribe) and accurately reflects the services I performed and decisions made by me, Vinay Mcpherson MD, as attested by the provider's signature.
[2019-05-14 18:47] LABS: BASO# 0.04 X1000 (0.0-0.2); BASO% 0.6 % (0.0-0.8); EOS# 0.14 X1000 (0.0-0.7); EOS% 2.1 % (0.0-10.0); HEMATOCRIT 49.9 % (42.0-52.0); HEMOGLOBIN 15.9 g/dL (14.0-18.0); LYMPH# 1.09 X1000 (1.2-3.4); MCH 31.1 PG (27-31); MCHC 31.9 g/dL (33-37); MCV 97.7 FL (81-99); MONO# 0.55 X1000 (0.11-0.59); MONO% 8.1 % (1.7-9.3); MPV 10.3 FL (7.4-10.4); NEUT# 4.98 X1000 (1.4-6.5); NEUT% 73.2 % (42.2-75.2); PLT 90 X1000 (130-400); RBC 5.11 XMIL (4.7-6.1); RDW 15.1 % (11.5-14.5)
[2019-05-14 18:50] LABS: INR 0.93; PROTIME 12.5 Seconds (11.0-16.0)
[2019-05-14 19:12] LABS: ALB/GLOB RATIO 1.2; ALBUMIN 4.3 g/dL (3.5-5.0); CALCIUM 9.5 mg/dL (8.8-10.2); MAGNESIUM 2.4 mg/dL (1.5-2.7); POTASSIUM 5.9 mmol/L (3.5-5.1); TOTAL BILIRUBIN 0.47 mg/dL (0.20-1.00)
--- NOTE | 2019-05-14 19:14 | Diag Imaging Result Doc PS360 ---
EXAM: CT HEAD W/O CONTRAST INDICATION: hypertensive [place], recent stroke TECHNIQUE: This exam was performed using automated exposure control, adjustment of mA or kV according to patient size, and/or use of iterative reconstruction technique. COMPARISON: 04/29/2019 FINDINGS: There is a stable chronic lacunar infarct involving the right basal ganglion. There is no definite acute infarct given the limited sensitivity of CT versus MRI. There is no discrete intracranial mass, mass effect, or intracranial hemorrhage. There is stable severe chronic right maxillary sinusitis and milder right ethmoid sinusitis. IMPRESSION: Stable tiny chronic lacunar infarct involving the right basal ganglion. No definite acute pathology by CT. Electronically signed by Ilia Aburto 05/14/2019 7:12 PM
[2019-05-14 19:17] LABS: CREATININE 7.7 mg/dL (0.7-1.2)
--- NOTE | 2019-05-14 19:38 | Diag Imaging Result Doc PS360 ---
EXAM: CHEST-PORTABLE INDICATION: htn TECHNIQUE: One view COMPARISON: 04/29/2019 FINDINGS: The lungs are grossly clear. There is no discrete pleural fluid collection or pneumothorax. The central vasculature appears mildly prominent suggesting mild pulmonary venous congestion. This is similar to the previous study. Cardiac silhouette is unremarkable. IMPRESSION: Suggestion of mild pulmonary venous congestion. Electronically signed by Ilia Aburto 05/14/2019 7:36 PM
--- NOTE | 2019-05-14 20:17 | EKG Report ---
Test Performed on : 05/14/2019 6:54:41 PM Test Reason : HTN Blood Pressure : / mmHG Vent. Rate : 067 BPM Atrial Rate : 067 BPM P-R Int : 178 ms QRS Dur : 096 ms QT Int : 424 ms P-R-T Axes : 054 029 069 degrees QTc Int : 448 ms Normal sinus rhythm. Possible Left atrial enlargement Borderline ECG When compared with ECG of 29-APR-2019 06:32, (Unconfirmed) No significant change was found Unconfirmed Result
[2019-05-14] MEDS ORDERED: NITROGLYCERIN TOP ONE (20:58)
[2019-05-14] MEDS ORDERED: ZOFRAN IV ONE (21:21)
[2019-05-14] MEDS ORDERED: CATAPRES PO ONE (22:27)
--- NOTE | 2019-05-15 00:29 | HISTORY AND PHYSICAL ---
PRIMARY CARE PHYSICIAN: Dr. Reece. CHIEF COMPLAINT: Elevated blood pressure. HISTORY OF PRESENTING ILLNESS: A 48-year-old male with a history of end-stage renal disease, on renal dialysis Saturday, Saturday, Saturday, diabetes mellitus type 2, hypertension and congestive heart failure, who presented to emergency department after his Home Health nurse took his blood pressure and was around 218/120. He states that he has been having some headaches, that has been ongoing for several weeks or so. The patient subsequently had come to the emergency department and his blood pressure remained elevated and due to his presenting symptoms patient will need admission for further evaluation and management. At the time of my examination, patient denied any fever, chills, chest pain, shortness of breath, but complained of headache and not feeling well. PAST MEDICAL HISTORY: Includes diabetes mellitus type 2, end-stage renal disease, on renal dialysis Saturday, Saturday, Saturday, hypertension, CHF, hepatitis C. PAST SURGICAL HISTORY: Left eye surgery, left arm fistula. ALLERGIES: Penicillin. CURRENT MEDICATIONS: Include albuterol inhaler 2 puffs q.i.d., calcium carbonate 750 mg p.o. t.i.d., Coreg 25 mg p.o. q.12 hours, clonidine 0.1 mg p.o. b.i.d., gabapentin 300 mg p.o. t.i.d., omeprazole 40 mg p.o. daily, Januvia 100 mg p.o. daily. SOCIAL HISTORY: He is a former smoker. Denies any history of alcohol use. Admits to occasional marijuana use. FAMILY HISTORY: No history of coronary artery disease. REVIEW OF SYSTEMS: Fourteen point review of system as listed in HPI. Other systems negative. PHYSICAL EXAMINATION: GENERAL: Cooperative, friendly male. He is resting comfortably now. VITAL SIGNS: Temperature 97.6 degrees, pulse 70, respiration 18, blood pressure 216/104, repeat after clonidine was 185/100. HEENT: Atraumatic, normocephalic. Extraocular movements intact. PERRLA. NECK: No masses. CHEST: Clear to auscultation. CARDIOVASCULAR: Regular rate and rhythm. ABDOMEN: Soft. Positive bowel sounds. EXTREMITIES: No edema. NEUROLOGIC: He is awake, alert, oriented x3. GENITOURINARY: No bladder distention. SKIN: Warm. LABORATORIES AND STUDIES: WBC 6.80, hemoglobin 15.9, hematocrit 49.9, platelets 90,000. Sodium 133, potassium 5.9, chloride 94, CO2 is 23, BUN is 33, creatinine 7.7, glucose is 127. Head CT, stable tiny chronic lacunar infarct involving the right basal ganglia. Chest x- ray, mild pulmonary venous congestion. ASSESSMENT: This is a 48-year-old male with a history of end-stage renal disease, diabetes mellitus type 2, hypertension, congestive heart failure, who had presented to emergency department with a 1-day history of having elevated blood pressure. He states that his Home Health nurse checked his blood pressure and it was 218/120. He was also having some headaches and subsequently had come to the emergency department. In the ED, he was evaluated and due to his elevated blood pressure it was thought that we will place him for observation for further evaluation and management. 1. Hypertensive urgency. 2. End-stage renal disease. 3. Diabetes mellitus type 2. 4. Congestive heart failure, diastolic dysfunction. 5. Mildly elevated troponin in setting of chronic kidney disease. PLAN: 1. We will admit patient to medical floor with telemetry. 2. Continue to monitor his blood pressure closely. 3. We will restart his antihypertensive agents. 4. We will consult Nephrology for dialysis. 5. Monitor blood glucose and put patient on sliding scale insulin regimen. 6. We will obtain his records regarding to see if he had a recent echo. 7. We will put patient on DVT prophylaxis with SCDs. 8. We will trend his troponins. 9. We will put patient on DVT prophylaxis with SCDs. 10. We will continue to follow, reassess and make further recommendation based on patient's clinical course. cc: Gerson Lugo MD MTDD
[2019-05-15] MEDS ORDERED: ZOFRAN IV PRN (00:36)
[2019-05-15] MEDS: COREG PO SCH ×2 (00:50→11:36)
[2019-05-15] MEDS: TYLENOL PO PRN ×2 (00:59→08:43)
[2019-05-15 05:47] LABS: BASO# 0.03 X1000 (0.0-0.2); BASO% 0.3 % (0.0-0.8); EOS# 0.11 X1000 (0.0-0.7); HEMATOCRIT 44.4 % (42.0-52.0); IMM GRAN# 0.02 X1000 (0.0-0.04); IMM GRAN% 0.2 % (0.0-0.5); LYMPH% 11.8 % (20.5-51.1); MCH 30.9 PG (27-31); MCHC 31.5 g/dL (33-37); MONO# 0.91 X1000 (0.11-0.59); MONO% 8.3 % (1.7-9.3); MPV 10.1 FL (7.4-10.4); NEUT# 8.62 X1000 (1.4-6.5); NEUT% 78.4 % (42.2-75.2); PLT 98 X1000 (130-400); RBC 4.53 XMIL (4.7-6.1); WBC 10.99 X1000 (4.8-10.8)
[2019-05-15] MEDS ORDERED: TIGHT: 0.2 ML/HR FOR DIALYSIS MISC PRN (06:29)
[2019-05-15] MEDS ORDERED: NS 2,000 ML MISC PRN (06:29)
[2019-05-15] MEDS ORDERED: HEPARIN IV PRN (06:29)
[2019-05-15] MEDS: HUMULIN R SUBQ SCH ×4 (06:30→20:50)
[2019-05-15 06:51] LABS: CALCIUM 8.5 mg/dL (8.8-10.2); POTASSIUM 5.9 mmol/L (3.5-5.1)
[2019-05-15 06:53] LABS: CREATININE 8.7 mg/dL (0.7-1.2)
[2019-05-15] MEDS: HEMOCYTE PLUS CAPSULE PO SCH (08:29)
[2019-05-15] MEDS: NEURONTIN PO SCH ×3 (08:29→20:43)
[2019-05-15] MEDS: PRILOSEC PO SCH (08:29)
[2019-05-15] MEDS: CATAPRES PO SCH ×2 (08:29→20:43)
[2019-05-15] MEDS: WELLBUTRIN XL PO SCH (08:29)
[2019-05-15] MEDS: TUMS EXTRA STRENGTH PO SCH ×3 (08:29→19:24)
[2019-05-15] MEDS: NORVASC PO SCH (11:34)
--- NOTE | 2019-05-15 14:02 | NEPHROLOGY CONSULTATION ---
DATE: 05/09/2019 REASON FOR CONSULTATION: End stage renal disease/dialysis. HISTORY OF PRESENT ILLNESS: Mr. Solomon is a 48-year-old white male who was recently hospitalized with altered mental status and VZV infection. He returned to the emergency room because of a headache and blurred vision and marked hypertension. Initial blood pressure 218/120. This was treated in the emergency room and then he was admitted to the hospital and oral medications were titrated. This morning, his blood pressure is better. He states that his blurred vision is somewhat improved but still present. Headache is improved. PAST MEDICAL HISTORY: As above. He also has diabetes, peripheral neuropathy. HOME MEDICATIONS: Include gabapentin, Integra, sitagliptin, calcium carbonate, albuterol, bupropion, clonidine, omeprazole, carvedilol. ALLERGIES: Penicillin. SOCIAL HISTORY: He lives alone but his father is his primary assistance. FAMILY HISTORY: Otherwise noncontributory. REVIEW OF SYSTEMS: Otherwise noncontributory. PHYSICAL EXAMINATION: Vital Signs: Blood pressure 167/84, heart rate 65, respirations 14, afebrile. General: No acute distress. Skin: Warm and dry. Conjunctivae are pink. Pupils are equal. Oropharynx is moist. Neck: Neck veins are 6 cm. Trachea midline. Heart: Regular with S4. Enlarged PMI. Lungs: Have equal breath sounds. No crackles or wheezes. Abdomen: Soft, nontender. No organomegaly, masses. Extremities: With trace edema. No clubbing or cyanosis. IMPRESSION: 1. Chronic kidney disease 5D. He does have moderate hyperkalemia and hyponatremia today. He will have his routine hemodialysis using a 2 potassium bath and his outpatient dry weight. 2. Hypertension significantly improved with restarting home medications. He has also received p.r.n. treatment. Continue current care. cc: MD Aftab Christopher MD
--- NOTE | 2019-05-15 20:13 | PROGRESS NOTE ---
DATE: 05/15/2019 SUBJECTIVE: A 48-year-old white gentleman who was brought in with substantially elevated blood pressure, 200/140, and the patient has been under the care of Dr. Mercado and Dr. Sage. He used to have hydralazine and Coreg, and stopped FRANCO inhibitors due to hyperkalemia. Anyhow, his blood pressure is running high, and they have resuscitated him in the ER and readmitted him back in the hospital. He is going for dialysis today. He has some headaches and mental status changes. REVIEW OF SYSTEMS: At this time, no headache. No mental confusion. PHYSICAL EXAMINATION: Vital Signs: Temperature is 97. Blood pressure is coming down. HEENT: Within normal limits. Neck: Supple. Chest: Clear. The rash in the right arm is improving. A left arm AV graft is noted. Physical Exam: No focal deficits. LABS: White cell count 10, hematocrit 44, platelets 98. Sodium 130, potassium 5.9, BUN 39, creatinine 8.7. ProBNP was high. CT head was obtained. Lacunar infarcts, no acute pathology noted. Chest x-ray: Mild pulmonary congestion with cardiomegaly. EKG: Normal sinus, nothing acute. ASSESSMENT: 1. Hypertensive encephalopathy. 2. End-stage kidney disease. 3. Cardiomegaly. 4. Hyperkalemia. 5. Chronic hepatitis C. 6. Intermittent use of marijuana products. PLAN: 1. It could be rebound hypertension from clonidine. He was on hydralazine 100 t.i.d. along with Coreg. Unable to do FRANCO inhibitors or ARBs due to hyperkalemia. He lost transition of care in my office for more than a year and a half. I am going to restart him on hydralazine, along with added-on amlodipine by Dr. Sage, and we will slowly use on clonidine as needed. 2. Type 2 diabetes, on Januvia, and he is going for dialysis. Will observe over the weekend. LEVEL OF DOCUMENTATION: 25 minutes. cc: Aftab Reece MD MTDGiovanna
[2019-05-15] MEDS: APRESOLINE PO SCH (20:42)
[2019-05-16] MEDS: TYLENOL PO PRN (00:07)
[2019-05-16] MEDS: COREG PO SCH ×2 (00:08→14:51)
[2019-05-16] MEDS: APRESOLINE PO SCH ×3 (04:38→21:01)
[2019-05-16] MEDS: HUMULIN R SUBQ SCH ×4 (06:25→21:02)
[2019-05-16] MEDS: TUMS EXTRA STRENGTH PO SCH ×3 (07:46→18:04)
[2019-05-16] MEDS: HEMOCYTE PLUS CAPSULE PO SCH (09:08)
[2019-05-16] MEDS: WELLBUTRIN XL PO SCH (09:08)
[2019-05-16] MEDS: NEURONTIN PO SCH ×3 (09:08→21:02)
[2019-05-16] MEDS: NORVASC PO SCH (09:08)
[2019-05-16] MEDS: CATAPRES PO SCH ×2 (09:08→21:01)
[2019-05-16] MEDS: PRILOSEC PO SCH (09:13)
--- NOTE | 2019-05-16 12:08 | PROGRESS NOTE ---
DATE: 05/16/2019 SUBJECTIVE: The patient came in with altered mental status and very high blood pressure. He had been admitted with varicella zoster infection, and encephalopathy. Previous to this admission back on 04/29/2019, and discharged on 05/04/2019. However, with the lumbar puncture varicella zoster DNI, PCR was negative so it is hard to say that varicella caused that problem. The patient's blood pressure was high when he came in. It is better now and he has been started on new medication. His rash where he had the varicella seems to be coming back a little bit. We will make sure that he is on probably some Famvir for this. OBJECTIVE: Blood pressure 170/91, pulse 66, respirations 16, and temperature 97.5 degrees Fahrenheit.HEENT: He is normocephalic. EOMS intact. PERRLA. Throat clear. Lungs: Clear to auscultation and percussion without rhonchi, rales, or wheezes. Heart: Regular rate and rhythm without murmurs, gallops, or friction rubs. Abdomen: Soft. Active bowel sounds. No organomegaly or tenderness. ASSESSMENT AND PLAN: The patient has some raised rash on his right arm where he said he had shingles there. He says it mostly itches now. They do not really look like vesicles but because he just had this, we will place him back on some Famvir. Will control continue to control blood pressure. His altered mental status has improved. cc: MD Aftab Gates Jr, MD
[2019-05-16] MEDS: FAMVIR PO SCH ×2 (12:38→21:02)
[2019-05-17] MEDS: COREG PO SCH ×2 (01:00→12:25)
[2019-05-17] MEDS: APRESOLINE PO SCH ×3 (05:26→20:18)
[2019-05-17] MEDS: WELLBUTRIN XL PO SCH (08:49)
[2019-05-17] MEDS: CATAPRES PO SCH ×2 (08:50→20:18)
[2019-05-17] MEDS: TUMS EXTRA STRENGTH PO SCH ×3 (08:50→12:24)
[2019-05-17] MEDS: NEURONTIN PO SCH ×2 (08:50→20:18)
[2019-05-17] MEDS: PRILOSEC PO SCH (08:50)
[2019-05-17] MEDS: FAMVIR PO SCH ×2 (08:50→20:18)
[2019-05-17] MEDS: NORVASC PO SCH (08:50)
[2019-05-17] MEDS: HEMOCYTE PLUS CAPSULE PO SCH (08:50)
[2019-05-17] MEDS: HUMULIN R SUBQ SCH ×3 (08:55→20:19)
--- NOTE | 2019-05-17 13:41 | PROGRESS NOTE ---
DATE: 05/17/2019 SUBJECTIVE: The patient says his rash seems to be doing better since we started the Famvir. He does not seem to have any problems with mentation at this time. OBJECTIVE: Blood pressure is 120/75, respirations 14, pulse 70, temperature 97.8 degrees Fahrenheit, oxygen saturation is 95% on room air.HEENT: Normocephalic. EOMS intact. PERRLA. Throat clear. Lungs: Clear to auscultation and percussion without rhonchi, rales, or wheezes. Heart: Regular rate and rhythm without murmurs, gallops, friction rubs. Abdomen: Soft. Active bowel sounds. No organomegaly or tenderness. Neurological: Intact grossly. LABS: Last creatinine was 8.7. He is due for dialysis as he has renal failure. ASSESSMENT: 1. Altered mental status. 2. Hypertensive crisis. 3. End-stage renal disease. PLAN: Continue current medications. We will make sure that he can get his dialysis. Dr. Sage has already seen him as he has been consulted. cc: MD Aftab Gates Jr, MD
[2019-05-17] MEDS: TYLENOL PO PRN (15:20)
[2019-05-18] MEDS: COREG PO SCH (00:47)
[2019-05-18] MEDS: NEURONTIN PO SCH ×2 (00:53→13:18)
[2019-05-18] MEDS: HUMULIN R SUBQ SCH ×3 (00:54→13:23)
[2019-05-18] MEDS: TUMS EXTRA STRENGTH PO SCH ×4 (00:54→13:20)
[2019-05-18 04:11] VITALS: BP 137/70
[2019-05-18] MEDS: APRESOLINE PO SCH (06:01)
[2019-05-18] MEDS ORDERED: NS 2,000 ML MISC PRN (06:22)
[2019-05-18] MEDS ORDERED: TIGHT: 0.2 ML/HR FOR DIALYSIS MISC PRN (06:22)
[2019-05-18] MEDS ORDERED: HEPARIN IV PRN (06:22)
--- NOTE | 2019-05-18 09:38 | NEPHROLOGY PROGRESS NOTE ---
DATE: 05/18/2019 Subjective: Patient lying in bed awake watching TV. Denies any uremic complaints. Objective: vitals. Temperature 97.7, pulse 68, respirations 20, blood pressure 137/70, 02 sat 95% on room air. General: white male lying in bed in no acute distress. HEENT: a traumatic, normocephalic. Mucous membranes moist. Trachea midline Skin: warm and dry. No rash noted Neck: supple, no JVD observed. Cardiovascular: S1, S2, S4 with an enlarged PMI, no rubs or gallops noted Respiratory: clear bilaterally with equal excursion. Abdomen: soft, nontender and nondistended. : none inspected Extremities: no clubbing, cyanosis, or Edema. Neurological: alert and oriented to person, place, and time. Labs: intake 1200, output zero. Impression: Chronic kidney disease 5D. He will resume his routine hemodialysis treatment today with plans to go home after. Blood pressure. In target. cc: MD Aftab Christopher MD MTDD
[2019-05-18] MEDS: PRILOSEC PO SCH (13:17)
[2019-05-18] MEDS: HEMOCYTE PLUS CAPSULE PO SCH (13:18)
[2019-05-18] MEDS: NORVASC PO SCH (13:18)
[2019-05-18] MEDS: FAMVIR PO SCH (13:18)
[2019-05-18] MEDS: CATAPRES PO SCH (13:18)
[2019-05-18] MEDS: WELLBUTRIN XL PO SCH (13:18)
--- NOTE | 2019-05-19 13:26 | DISCHARGE SUMMARY ---
ADMISSION DATE: 05/14/2019 DISCHARGE DATE: 05/18/2019 DISCHARGING DIAGNOSIS: 1. Headache. Altered mental status. due to malignant hypertension. SECONDARY DIAGNOSES: 1. End-stage kidney disease on hemodialysis 3 times per week as per Dr. Sage via a left arm AV graft. 2. Resolving right C5-C6 shingles. 3. Chronic hepatitis C virus. 4. Nicotine dependency/marijuana abuse. 5. Type 2 diabetes. 6. Thrombocytopenia. Platelet count 98,000. CONSULTS: Dr. Sage. PROCEDURES: Dialysis. BRIEF HISTORY: In brief, he is a 48-year-old white gentleman, readmitted to the hospital with headache, mental confusion due to malignant hypertension. Blood pressure was 240/110. He was taking hydralazine and Coreg 18 months ago. He is on clonidine. I told the patient clonidine will cause the rebound hypertension. During this hospital course, we added on amlodipine and hydralazine. Blood pressure was stable and slowly cut down the clonidine as needed. Neurological is exam is intact. I spoke to Dr. Sage, who concurred the present plan. He was given inpatient dialysis. Rest of the hospital course was uneventful. LABS: CBC: White cell count 10, hematocrit 44, platelets 98,000. Sodium 130, potassium 4.9, BUN 39, creatinine 8.7. LFTs were high and proBNP [place] 71381. DISCHARGE INSTRUCTIONS: 1. Outpatient hepatitis C evaluation with a viral load. LFTs were high. I am going to do the hep C, [employer], and viral load. Alpha-fetoprotein. 2. Control the blood pressure with hydralazine 100 q. 8, amlodipine 10 daily, Coreg 12.5 p.o. b.i.d., and clonidine as needed. 3. Neurontin 300 p.o. t.i.d., Integra Plus 1 tablet daily, Januvia 100 daily, calcium carbonate 750 t.i.d., ProAir HFA 1 puff q. 6, bupropion XL 300 mg daily, Prilosec 40 daily and follow up with Dr. Sage as well as in my office. cc: MD Andrae Stockton MD MTDD
== END 2019-05-18 13:47 | disposition home health service (06) | DRG 304 ==
LOC: ED 17:20 → OBSVTOIN 05-15 00:20 → SUATTDRO 05-15 00:20 → INTOOBSV 05-15 00:20 → 1N 05-15 00:20
PROVIDERS: ADMIT Internal Medicine; ATTEND Internal Medicine

== ENCOUNTER 2019-08-20 18:17 | Inpatient (IN) ==
[2019-08-20 18:45] LABS: BASO# 0.29 X1000 (0.0-0.2); BASO% 3.2 % (0.0-0.8); EOS% 3.3 % (0.0-10.0); HEMATOCRIT 50.9 % (42.0-52.0); HEMOGLOBIN 16.3 g/dL (14.0-18.0); LYMPH# 2.17 X1000 (1.2-3.4); LYMPH% 23.7 % (20.5-51.1); MONO# 0.99 X1000 (0.11-0.59); MONO% 10.8 % (1.7-9.3); MPV 10.1 FL (7.4-10.4); PLT 110 X1000 (130-400); RBC 5.25 XMIL (4.7-6.1); RDW 15.4 % (11.5-14.5); WBC 9.15 X1000 (4.8-10.8)
[2019-08-20 19:28] LABS: ALBUMIN 4.1 g/dL (3.5-5.0); CREATININE 9.5 mg/dL (0.7-1.2); TOTAL BILIRUBIN 0.56 mg/dL (0.20-1.00); TOTAL PROTEIN 8.1 g/dL (6.3-8.3)
[2019-08-20 19:47] LABS: POTASSIUM 6.6 mmol/L (3.5-5.1)
[2019-08-20] MEDS ORDERED: D50W SYRINGE IV ONE (20:07)
[2019-08-20] MEDS ORDERED: SODIUM BICARBONATE 8.4% IV PUSH ONE (20:07)
[2019-08-20] MEDS ORDERED: ALBUTEROL NEB INH ONE (20:08)
[2019-08-20] MEDS ORDERED: CALCIUM CHLORIDE SYRINGE IV ONE (20:08)
[2019-08-20] MEDS ORDERED: HUMULIN R IV ONE (20:09)
--- NOTE | 2019-08-20 20:15 | Diag Imaging Result Doc PS360 ---
EXAM: CHEST-2 VIEWS - 08/20/2019 HISTORY: SOB, dialysis pt TECHNIQUE: Chest two views COMPARISON: 05/14/2019 portable chest, 10/01/2018 chest two views FINDINGS: Heart size is normal. The lungs appear clear. There is no pleural effusion or pneumothorax identified. IMPRESSION: No evidence of acute disease. Electronically signed by Dante [employer] 08/20/2019 8:13 PM
--- NOTE | 2019-08-20 20:36 | PROVIDER DOCUMENTATION ---
This chart was entered by Gloria Alfonso Scribe, acting as scribe for Julien Urias MD. HPI-General Adult - General Chief Complaint: Abnormal Lab[s] Stated Complaint: ABNORMAL LAB[S] Time Seen by Provider: 08/20/19 20:14 Source: patient Allergies/Adverse Reactions: Patient Allergies Allergy/AdvReac Type Severity Reaction Status Date / Time Penicillins Allergy Severe ANAPHYLAXIS Verified 05/14/19 18:16 Home Medications: Home Medication List Medication Instructions Recorded Confirmed Last Taken Type Gabapentin [Neurontin] 300 mg PO TID #0 04/13/16 05/14/19 05/14/19 Rx Iron Fum,Ps Cmp/Vit C/Niacin 1 each PO DAILY 10/31/16 05/14/19 05/14/19 History [Integra Capsule] Sitagliptin Phosphate [Januvia] 100 mg PO DAILY 10/31/16 05/14/19 05/14/19 History Calcium Carbonate [Tums Extra 750 mg PO TID 11/02/16 05/14/19 05/14/19 History Strength] Albuterol Sulfate [Proair Hfa] 2 puff INH PRN PRN 04/29/19 05/14/19 05/14/19 Hi story Bupropion HCl [Bupropion Xl] 1 tab PO DAILY 04/29/19 05/14/19 05/14/19 History Carvedilol [Coreg] 25 mg PO Q12H 04/29/19 05/14/19 05/14/19 History Omeprazole 40 mg PO DAILY 04/29/19 05/14/19 05/14/19 History Amlodipine [Norvasc] 10 mg PO DAILY #90 tab 05/18/19 Unknown Rx Calcium Carbonate [Tums Extra 2,250 mg PO TID CC tab 05/18/19 Unknown Rx Strength] Hydralazine [Apresoline] 100 mg PO Q8H #90 tab 05/18/19 Unknown Rx - History of Present Illness -Gen Adult Nature of Presenting Problems: Patient is a 49 year old white male with ESRD (receives hemodialysis MWF, followed by Dr. Keys) and history of hepatitis C, who saw GI doctor, Dr. Mckeon, this afternoon who noted potassium over 7 at about 4pm today. Patient arrives by private auto for further treament. patient denies chest pain. Patient noted to have potassium of 6.6 with EKG changes. Nephrology and hospitalist notified immediately and treatment started to include D50W,insulin, IV calcium, albuterol updraft, and iv bicarb. Location of Pain/Injury: reports: none Pain Radiation: reports: no radiation Quality of Pain: reports: none Onset/Duration: reports: abrupt, 4-6 hours ago (Lab work at Dr velasco done at 4 pm 08/20/2019) Timing: reports: still present Context/Activities at Onset: reports: light activity Modifying Factors: improves with: nothing Associated Symptoms: reports: other (feels like he is freezing all the time). denies: dizziness, shortness of breath Similar Symptoms Previously?: No Recently seen or treated by another doctor?: Yes (Dr. Diaz) Review of Systems - Adult - REVIEW OF SYSTEMS - ADULT Constitutional: reports: see HPI, chills (pt stat). denies: fever Eyes: reports: no symptoms reported Ears, Nose, Mouth & Throat: reports: no symptoms reported Cardiovascular: denies: chest pain, syncope Respiratory: denies: cough, shortness of breath Gastrointestinal: denies: abdominal pain, diarrhea, nausea, vomiting Genitourinary: denies: frequency, urinary retention Musculoskeletal: denies: back pain, muscle weakness Integumentary: reports: no symptoms reported Neurological: denies: dizziness/vertigo, syncope Psychiatric: reports: no symptoms reported Endocrine: reports: no symptoms reported Hematologic/Lymphatic: reports: no symptoms reported Allergic/Immunologic: reports: no symptoms reported All Other Systems: Reviewed and Negative Past History - Adult - PAST MEDICAL HISTORY-ADULT Review of Records: reports: Old Records Reviewed, Nursing Assessment Review, Medications Reviewed, Social history reviewed & non-contributory. Major Childhood Illnesses: reports: denies history Cardiovascular: reports: CHF, HTN, hyperlipidemia Respiratory: reports: other (emphysema) Gastrointestinal: reports: denies history, hepatitis (Hep C) Obstetrical/Gynecological: reports: denies history Genitourinary: reports: kidney disease (stage 5) Musculoskeletal: reports: denies history Neurological: reports: denies history Endocrine/Immune: reports: Diabetes Other Conditions: reports: denies history - PRIOR SURGERIES/PROCEDURES Surgical/Procedure History: reports: none - PRIOR HOSPITALIZATIONS Prior Hospitalizations: reports: none - IMMUNIZATION STATUS Childhood Immunizations: See Nurse Assessment Flu Vaccine: See Nurse Assessment - FAMILY HISTORY Family History: reviewed, not pertinent - SOCIAL HISTORY Smoking: quit less than 1 year Substance Use: denies Living Situation: alone Physical Exam-General - PHYSICAL EXAM-ADULT Initial Vital Signs Reviewed: Yes - CONSTITUTIONAL General Appearance: appears well, alert, no apparent distress - EYES Eyes: PERRL/EOMI - HEAD, EARS, NOSE, MOUTH & THROAT HENMT: normocephalic/atraumatic, moist mucous membranes - NECK Neck: non-tender, full range of motion, supple - RESPIRATORY Respiratory: chest non-tender, lungs clear, normal breath sounds, no pleuratic chest pain, no respiratory distress - CARDIOVASCULAR Cardiovascular: normal peripheral pulses, regular rate, rhythm - GASTROINTESTINAL (ABDOMEN) Abdominal Exam: non tender, soft - MUSCULOSKELETAL Back Exam: normal inspection, no CVA tenderness, no vertebral tenderness Extremity: normal range of motion, non-tender, normal gait, normal inspection - SKIN Integumentary: normal color, normal turgor, warm/dry - PSYCHIATRIC Psych/Mental Status: normal mood/affect, normal thought content, normal thought process, oriented x 3 Progress - PLAN OF CARE/RESULTS Progress/Plan/Lab Results: Vital Signs - 8 hr 08/20/19 18:23 Temperature 99.0 F Pulse Rate 78 Respiratory Rate 15 Blood Pressure 156/95 O2 Sat by Pulse Oximetry 96 Laboratory Results - last 24 hr 08/20/19 08/20/19 18:30 18:30 WBC 9.15 RBC 5.25 Hgb 16.3 Hct 50.9 MCV 97.0 MCH 31.0 MCHC 32.0 L RDW Std Deviation 15.4 H Plt Count 110 L MPV 10.1 Immature Gran % (Auto) 0.0 Neut % (Auto) 59.0 Lymph % (Auto) 23.7 [place] % (Auto) 10.8 H Eos % (Auto) 3.3 Baso % (Auto) 3.2 H Immature Gran # (Auto) 0.00 Neut # (Auto) 5.40 Lymph # (Auto) 2.17 [place] # (Auto) 0.99 H Eos # (Auto) 0.30 Baso # (Auto) 0.29 H Sodium 135 L Potassium 6.6 H* Chloride 92 L Carbon Dioxide 25 Anion Gap 18 BUN 41 H Creatinine 9.5 H Estimated GFR/1.73 m2 6 BUN/Creatinine Ratio 4 Glucose 125 H Calculated Osmolality 282 Calcium 10.0 Total Bilirubin 0.56 AST 21 ALT 23 Alkaline Phosphatase 138 H Total Protein 8.1 Albumin 4.1 Globulin 4.0 Albumin/Globulin Ratio 1.0 Orders Category Date Time Status Cardiac Monitoring DIRECTED Care 08/20/19 20:09 Active Misc. NRSG Communication Order DIRECTED Care 08/20/19 20:15 Active Nursing- MD Consult Request ROUTINE Care 08/20/19 20:14 Active Physician/Provider Consults Routine Cons 08/20/19 20:14 Ordered CHEST-2 VIEWS [RAD] Stat Exams 08/20/19 19:14 Completed CBC WITH DIFF [HEME] Stat Lab 08/20/19 18:30 Completed COMPREHENSIVE METABOLIC PANEL [CHEM] Stat Lab 08/20/19 18:30 Completed Albuterol [Albuterol Neb] Med 08/20/19 20:08 Discontinued 2.5 mg INH NOW ONE Calcium Chloride Syringe Med 08/20/19 20:08 Discontinued 1 gm IV NOW ONE Dextrose 50% Syringe [D50w Syringe] Med 08/20/19 20:07 Discontinued 50 ml IV NOW ONE Insulin Human Regular [Humulin R] Med 08/20/19 20:09 Discontinued 7 unit IV NOW ONE Sodium Bicarbonate 8.4% Med 08/20/19 20:07 Discontinued 50 meq IV PUSH NOW ONE Aerosol Treatments Routine Oth 08/20/19 20:08 Active Aerosol Treatments Stat Oth 08/20/19 20:08 Active EKG [EKG] Stat Ther 08/20/19 18:30 Ordered Result Diagrams: 08/20/19 18:30 08/20/19 18:30 - XRAY 1 XRAY Study: Chest Impression: See EMR Report (EXAM: CHEST-2 VIEWS - 08/20/2019 HISTORY: SOB, dialysis pt TECHNIQUE: Chest two views COMPARISON: 05/14/2019 portable chest, 10/01/2018 chest two views FINDINGS: Heart size is normal. The lungs appear clear. There is no pleural effusion or pneumothorax identified. IMPRESSION: No evidence of acute disease. Electronically signed by Dante Mcmahon 08/20/2019 8:13 PM 08/20/192012 Interpreting Physician: Dante Mcmahon MD Dictated Date/Time: 08/20/192010 cc: Tae Cordero; Charan Reece MD) - CONSULTS/PCP/HOSPITALIST Notification #1 *Consult/PCP/Hospitalist*: THOR Horn APN Time Discussed: 20:20 Reason/Comments: admit to hospitalist, will arrange hemodialysis #2 Consult: Dr. Lugo hospitalist Time Discussed: 20:22 Consult Disposition: Admit Departure - Departure Date of Disposition Decision: 08/20/19 Time of Disposition Decision: 20:36 DIAGNOSIS: ESRD (end stage renal disease), Hyperkalemia Disposition: ADMITTED INPATIENT 09 Certified Medical Emergency: Emergent Condition: Serious Referrals and Follow-Ups: Charan Reece MD [Primary Care Provider] - - Critical Care Note This patient required my direct & personal management of CC.: Yes Attestation - Physician/ WENDI Attestation Patient care was provided by Advanced Practice Provider:: No The physician spent face to face time with patient:: Yes Advanced Practice Provider documentation review:: Supervising physician onsite and consulted in the evaluation and care of this patient. The physician did have a face to face encounter with the patient. This chart was documented by the indicated scribe, (Gloria Alfonso Scribe) and accurately reflects the services I performed and decisions made by me, Julien Liz MD, as attested by the provider's signature.
--- NOTE | 2019-08-20 20:43 | EKG Report ---
Test Performed on : 08/20/2019 6:33:15 PM Test Reason : Elevated potassium Blood Pressure : / mmHG Vent. Rate : 074 BPM Atrial Rate : 074 BPM P-R Int : 168 ms QRS Dur : 084 ms QT Int : 374 ms P-R-T Axes : 047 -05 066 degrees QTc Int : 415 ms Normal sinus rhythm. Inferior infarct , age undetermined Possible Anterior infarct , age undetermined Abnormal ECG When compared with ECG of 14-MAY-2019 18:54, Inferior infarct is now present Unconfirmed Result
[2019-08-20] MEDS ORDERED: TYLENOL PO PRN (22:57)
[2019-08-20] MEDS ORDERED: ZOFRAN IV PRN (22:57)
--- NOTE | 2019-08-20 22:57 | HISTORY AND PHYSICAL ---
PRIMARY CARE PHYSICIAN: Dr. Reece. CHIEF COMPLAINT: Abnormal labs. HISTORY OF PRESENTING ILLNESS: A 49-year-old male with a history of diabetes mellitus type 2, end- stage renal disease on renal dialysis Saturday, Saturday, Saturday, CHF, hep C, who apparently was at his supervisor residential's office and was about to begin treatment for hepatitis C. He apparently had laboratories drawn there which did show he had markedly elevated potassium. Subsequently, he was sent to the emergency department. He was evaluated there. He was treated with insulin, albuterol updraft and calcium gluconate and he will need admission for further management. At the time of my examination, patient denied any headache, fever, chills, chest pain, shortness of breath or any weight changes. States that he feels okay. PAST MEDICAL HISTORY: Includes diabetes mellitus type 2, end-stage renal disease, CHF, hep C. PAST SURGICAL HISTORY: Left eye surgery, left arm fistula. ALLERGIES: Penicillin. CURRENT MEDICATIONS: Albuterol inhaler q.6 hours, Norvasc 10 mg p.o. daily, bupropion 300 mg p.o. daily, calcium carbonate 750 mg p.o. daily, carvedilol 12.5 mg p.o. daily, gabapentin 300 mg p.o. daily, hydralazine 50 mg p.o. daily, omeprazole 40 mg p.o. daily, Januvia 100 mg p.o. daily. SOCIAL HISTORY: He is a former smoker. No history of alcohol use. Occasionally uses marijuana. FAMILY HISTORY: No history of coronary artery disease. REVIEW OF SYSTEMS: Fourteen point review of system is listed as in HPI. Other systems negative. PHYSICAL EXAMINATION: GENERAL: Cooperative, friendly male. He is resting more comfortably now. VITAL SIGNS: Temperature 99.0 degrees, pulse 78, respiration 15, blood pressure 156/95. HEENT: Atraumatic, normocephalic. Extraocular movements intact. PERRLA. NECK: No masses. CHEST: Bibasilar rales. CARDIOVASCULAR: Regular rate and rhythm. ABDOMEN: Soft. Positive bowel sounds. EXTREMITIES: No edema. NEUROLOGIC: He is awake, alert, oriented x3. GENITOURINARY: No bladder distention. SKIN: Warm. LABORATORIES AND STUDIES: WBC 9.15, hemoglobin 16.3, hematocrit 50.9, platelets 110,000. Sodium 135, potassium 6.6, chloride 92, CO2 is 25, BUN is 41, creatinine is 9.5, glucose 125. Chest x- ray, no evidence of any acute disease. ASSESSMENT: A 49-year-old male with a history of diabetes mellitus type 2, end- stage renal disease, congestive heart failure and hepatitis C. Apparently was at his supervisor residential's office to start treatment for hep C. He had laboratories drawn there which did show markedly elevated potassium at 7.0. Subsequently, he was sent to the emergency department for further management. In the ED, his potassium was treated. However, he will require admission for further management. 1. Hyperkalemia. 2. End-stage renal disease. 3. Diabetes mellitus type 2. 4. Hepatitis C. PLAN: 1. The patient will be [facility]. 2. We will continue to monitor his potassium level. 3. May start Kayexalate. 4. We will consult Nephrology for dialysis. 5. We will monitor blood glucose and put patient on sliding scale insulin regimen. 6. We will obtain records regarding his treatment for hep C. 7. Put patient on DVT prophylaxis with SCDs. 8. We will continue to follow, and reassess and make further recommendation based on patient's clinical course. cc: MD Aftab Edwards MD MTDD
[2019-08-21] MEDS ORDERED: HEPARIN IV PRN (07:01)
[2019-08-21] MEDS ORDERED: NS 2,000 ML MISC PRN (07:01)
[2019-08-21] MEDS ORDERED: TIGHT: 0.2 ML/HR FOR DIALYSIS MISC PRN (07:01)
[2019-08-21 07:12] LABS: EOS% 2.9 % (0.0-10.0); HEMATOCRIT 46.9 % (42.0-52.0); HEMOGLOBIN 15.4 g/dL (14.0-18.0); LYMPH# 2.27 X1000 (1.2-3.4); LYMPH% 22.1 % (20.5-51.1); MCH 31.6 PG (27-31); MCHC 32.8 g/dL (33-37); MCV 96.1 FL (81-99); MONO% 9.7 % (1.7-9.3); MPV 9.6 FL (7.4-10.4); PLT 98 X1000 (130-400); RBC 4.88 XMIL (4.7-6.1); WBC 10.29 X1000 (4.8-10.8)
[2019-08-21 07:39] LABS: CALCIUM 9.4 mg/dL (8.8-10.2)
[2019-08-21 07:42] LABS: POTASSIUM 7.2 mmol/L (3.5-5.1)
[2019-08-21 07:43] LABS: CREATININE 10.5 mg/dL (0.7-1.2)
[2019-08-21] MEDS: HUMULIN R SUBQ SCH ×4 (07:49→20:53)
[2019-08-21 09:01] LABS: HYPOCHROM 1+; LYMPHS 14 % (21-51); MONO 2 % (1-9); SEGS 84 % (42-75)
--- NOTE | 2019-08-21 09:47 | EKG Report ---
Test Performed on : 08/21/2019 05:14:14 AM Test Reason : ED. No order in [place] Blood Pressure : / mmHG Vent. Rate : 065 BPM Atrial Rate : 065 BPM P-R Int : 190 ms QRS Dur : 092 ms QT Int : 418 ms P-R-T Axes : 059 026 055 degrees QTc Int : 434 ms Normal sinus rhythm. Normal ECG When compared with ECG of 20-AUG-2019 18:33, (Unconfirmed) No significant change was found Unconfirmed Result
--- NOTE | 2019-08-21 17:44 | NEPHROLOGY CONSULTATION ---
DATE: 08/21/2019 REASON FOR ADMISSION: Hyperkalemia. REASON FOR CONSULTATION: Hyperkalemia, end-stage renal disease. REQUESTING PHYSICIAN: Dr. Lugo. HISTORY OF PRESENT ILLNESS: This is a 49-year-old gentleman known to our service for CKD 5D on a Saturday, Saturday, Saturday schedule. He has not missed any of his treatments this week. He was at his GI physician's office for his hepatitis C workup and treatment when it was noted on his labs that were drawn that he had hyperkalemia. He was directed to the emergency room, where he was found to have a potassium of 6.6. He was treated with insulin, D50, bicarbonate, albuterol, calcium, etc. This morning, his potassium is back up to 7. When I see him, he is being wheeled around to the dialysis clinic for treatment. The patient denies any nausea or vomiting. He denies any muscle weakness, chest pain, or palpitations. PAST MEDICAL HISTORY: Diabetes, end-stage renal disease, hepatitis C, CHF. SURGICAL HISTORY: Left eye surgery. He has a fistula on the left upper extremity. ALLERGIES: Penicillin. MEDICATIONS: Albuterol, Norvasc, bupropion, calcium carbonate, carvedilol, gabapentin, hydralazine, omeprazole and Januvia. FAMILY HISTORY: Noncontributory. SOCIAL HISTORY: Former smoker. No ETOH use. He no ETOH use. Occasionally uses marijuana. REVIEW OF SYSTEMS: Pertinent positives noted above in the HPI. PHYSICAL EXAMINATION: Vital Signs: Temperature 98.9, pulse 68, respiratory rate 17, blood pressure 132/79. Intake and output have not been measured yet. General: This is a middle-aged gentleman sitting up in bed. He is awake and alert. He does not appear in distress. HEENT: Normocephalic, atraumatic. Conjunctivae are pink. Oral mucosa moist. Neck: Supple, without JVD. Cardiovascular: Regular rate and rhythm. No murmur. Pulmonary: Clear bilaterally. Abdomen: Soft, with positive bowel sounds. : Not inspected. Extremities: No clubbing, cyanosis, edema. He has a fistula, left upper extremity. Integumentary: Skin is warm and dry. Neuro: Nonfocal. LAB DATA: WBC of 10.2, hemoglobin 15.4. He has a platelet of 98. Potassium 7.2. ASSESSMENT/PLAN: Chronic kidney disease stage 5D with hyperkalemia. Unclear as to etiology. He will dialyze on a 2K bath, ultrafiltration to dry weight, 4-hour treatment today. We will reevaluate his labs in the morning. We discussed with the patient if his potassium was back up, we would have to dialyze again. The patient states that his eyesight is poor, and he does not know if he has had any tarry or bloody stools, and medication review did not indicate medications that would predispose him to hyperkalemia. Dictated by CHEMA Mendez for Andrae Sage MD cc: MD Aftab Christopher MD [facility] HOSPITALGiovanna
[2019-08-21] MEDS ORDERED: VENTOLIN HFA INH PRN (18:38)
[2019-08-21] MEDS: NEURONTIN PO SCH (21:00)
[2019-08-21] MEDS: COREG PO SCH (21:00)
[2019-08-21] MEDS: APRESOLINE PO SCH (21:00)
[2019-08-21] MEDS: ZOCOR PO SCH (21:00)
[2019-08-21] MEDS: PHOSLO PO SCH (21:02)
--- NOTE | 2019-08-21 21:50 | PROGRESS NOTE ---
DATE: 08/21/2019 SUBJECTIVE: The patient is a 49-year-old white male with known history of hypertension, diabetes, hepatitis C active who recently was seen by Dr. Mckeon, started on Mavaret. He did some blood workup and potassium 7.5, and he was advised to go to the emergency room. He goes to dialysis Saturday, Saturday, Saturday. He did not skip the dialysis, and Dr. Sage was consulted for emergency dialysis. I am investigating the cause of hyperkalemia sudden onset. He has not started any medicines for the hepatitis C. The patient was seen in the dialysis center. He is feeling fine, no complaints. REVIEW OF SYSTEMS: None reported. PAST MEDICAL HISTORY: Reviewed. PAST SURGICAL HISTORY: Reviewed. MEDICINES: Reviewed. ALLERGIES: Penicillin. OBJECTIVE: Vital signs: Temperature is 98.3 degrees, pulse 72, blood pressure 111/64, 96% on room air, 5 feet 8 inches, 203 pounds. Input and output -3.5. HEENT: Within normal limits. Neck: Supple. Chest: Clear. Heart: Sounds are regular. Neurological: No neurological deficits. INVESTIGATIONS: White cell count 10, hematocrit 46, platelets 98,000. Sodium 134, potassium 7.5, repeated 6.6, creatinine 9.5, glucose 121. ASSESSMENT AND PLAN: 1. A 49-year-old white male admitted to the hospital with hyperkalemia with end- stage kidney disease. Emergency dialysis required. Follow up with Dr. Sage. We will investigate cause of hyperkalemia. For hyperkalemia before dialysis, patient was given dextrose followed by insulin, sodium bicarb drip, calcium chloride. 2. Hypertension. Amlodipine 10 mg daily, Coreg 25 p.o. b.i.d. hydralazine 100 t.i.d. 3. Type 2 diabetes on Januvia 100 daily. 4. Hyperlipidemia on Zocor. 5. Hepatitis C active under the treatment plan. 6. Depression on Wellbutrin. I appreciated Dr. Sage's consult. We will monitor daily SMA7. LEVEL OF DOCUMENTATION: 35 minutes. cc: Aftab Reece MD [facility]
[2019-08-22 06:20] LABS: CALCIUM 9.2 mg/dL (8.8-10.2); CREATININE 8.4 mg/dL (0.7-1.2)
[2019-08-22 06:41] LABS: POTASSIUM 6.9 mmol/L (3.5-5.1)
[2019-08-22] MEDS ORDERED: NS 2,000 ML MISC PRN (06:45)
[2019-08-22] MEDS ORDERED: TIGHT: 0.2 ML/HR FOR DIALYSIS MISC PRN (06:45)
[2019-08-22] MEDS ORDERED: HEPARIN IV PRN (06:45)
[2019-08-22] MEDS: HUMULIN R SUBQ SCH ×4 (07:09→20:30)
[2019-08-22] MEDS: PRILOSEC PO SCH (07:10)
[2019-08-22] MEDS ORDERED: EMLA CREAM TOP ONE (07:31)
[2019-08-22] MEDS ORDERED: EMLA CREAM TOP PRN (07:31)
--- NOTE | 2019-08-22 08:35 | NEPHROLOGY PROGRESS NOTE ---
DATE: 08/22/2019 SUBJECTIVE: Patient is sitting up in bed. He has no complaints. OBJECTIVE: Vital Signs: Temperature 97.5 degrees, pulse 65, respiratory rate 17, blood pressure 129/70. Intake 800 mL, output 3.7 L. This was UF on dialysis. General: Middle-aged gentleman sitting up in bed. Awake and alert. He is in acute distress. HEENT: Normocephalic, atraumatic. Oral mucosa moist. Neck: Supple without JVD. Cardiovascular: Regular without murmur or gallop. Pulmonary: Clear bilaterally. Abdomen: Soft. Positive bowel sounds. Genitourinary: Not inspected. Extremities: No clubbing, cyanosis, or edema. Left upper extremity fistula with positive thrill. Integumentary: Skin is warm and dry. Neurologic: Nonfocal. LABORATORY DATA: WBC of 10.2. Sodium 132, potassium 6.9, CO2 24, creatinine 8.4. ASSESSMENT AND PLAN: Chronic kidney disease 5D with hyperkalemia. His potassium dropped ever so slightly after dialysis yesterday but has risen again to almost 7. Plan for dialysis today with a 2K bath, 4 hour treatment. We will do pre and post BUN to rule out recirculation. We will go ahead and initiate Lokelma therapy on the patient. His hemoglobin has been excellent, was 15.4 yesterday. There is no indication of active gastrointestinal bleed, and medication review, again, nothing outstanding in the way of causation. Dictated by CHEMA Mendez for Andrae Sage MD cc: MD Aftab Christopher MD
[2019-08-22] MEDS: PHOSLO PO SCH ×3 (09:03→20:36)
[2019-08-22] MEDS: COREG PO SCH ×2 (09:03→20:31)
[2019-08-22] MEDS: APRESOLINE PO SCH ×3 (09:04→20:31)
[2019-08-22] MEDS: WELLBUTRIN XL PO SCH (09:04)
[2019-08-22] MEDS: NEURONTIN PO SCH ×2 (09:04→20:31)
[2019-08-22] MEDS: NORVASC PO SCH (09:04)
[2019-08-22] MEDS: HEMOCYTE PLUS CAPSULE PO SCH (09:04)
[2019-08-22] MEDS: JANUVIA PO SCH (09:04)
--- NOTE | 2019-08-22 12:13 | PROGRESS NOTE ---
DATE: 08/22/2019 SUBJECTIVE: The patient had dialysis yesterday. He did not start Mavyret for hep C. His potassium initially 7.5. He did not skip the dialysis, and he had dialysis yesterday. Potassium came down 5.9, today is 6.9. I am still investigating the sudden spiking of hyperkalemia. REVIEW OF SYSTEMS: None reported. PHYSICAL EXAMINATION: Vital Signs: On exam, temperature is 97 degrees, pulse 65, blood pressure 129/70, weight 203 pounds. HEENT exam: Within normal limits. Neck: Supple. No lymphadenopathy. Chest: Clear. Heart: Sounds are regular. Abdomen: Belly is soft, nontender. Good bowel sounds. Neurologic: No obvious deficits. LABS: CBC is normal. Potassium 6.9. ASSESSMENT AND PLAN: 1. Hyperkalemia, etiology to be determined. Continue renal low-potassium diet. I spoke to Dr. Sage. He has not changed any medicines. I do not see any medicines that contribute to hyperkalemia. 2. Going for dialysis today. Started on sodium zirconium powder 10 g daily. We will check the potassium tomorrow. 3. Chronic hepatitis C, stable. 4. Hypertension and diabetes are stable. Continue to monitor with low-renal, low-potassium diet. LEVEL OF DOCUMENTATION: 25 minutes. cc: Aftab Reece MD
[2019-08-22] MEDS: LOKELMA POWDER PACKET PO SCH (17:24)
[2019-08-22] MEDS: ZOCOR PO SCH (20:38)
[2019-08-23] MEDS: PRILOSEC PO SCH (06:24)
[2019-08-23] MEDS: HUMULIN R SUBQ SCH ×4 (06:25→21:09)
[2019-08-23 07:20] LABS: CALCIUM 9.7 mg/dL (8.8-10.2); CREATININE 7.3 mg/dL (0.7-1.2); POTASSIUM 5.5 mmol/L (3.5-5.1)
[2019-08-23] MEDS: PHOSLO PO SCH ×3 (08:23→21:12)
[2019-08-23] MEDS: HEMOCYTE PLUS CAPSULE PO SCH (08:24)
[2019-08-23] MEDS: WELLBUTRIN XL PO SCH (08:24)
[2019-08-23] MEDS: NEURONTIN PO SCH ×2 (08:24→21:12)
[2019-08-23] MEDS: NORVASC PO SCH (08:24)
[2019-08-23] MEDS: APRESOLINE PO SCH ×3 (08:24→21:12)
[2019-08-23] MEDS: JANUVIA PO SCH (08:24)
[2019-08-23] MEDS: COREG PO SCH ×2 (08:28→21:12)
--- NOTE | 2019-08-23 10:52 | PROGRESS NOTE ---
DATE: 08/23/2019 SUBJECTIVE: The patient had dialysis yesterday and today the potassium 5.5. REVIEW OF SYSTEMS: None reported. PHYSICAL EXAMINATION: Vital Signs: Temperature is 97 degrees, pulse 67, blood pressure is stable. 200 pounds, 98% on room air. I's and O's negative -678 mL. HEENT: Within normal limits. Neck: Supple. Chest: Clear. Heart: Heart sounds are regular. Abdomen: Belly is soft, nontender. Good bowel sounds. Neurologic: No neurological deficits. INVESTIGATIONS: Sodium 134, potassium 5.5, BUN 34, creatinine 7.3. ASSESSMENT AND PLAN: 1. Hyperkalemia, etiology to determine. Continue on dialysis with low renal diet. 2. Hypertension, stable. 3. End-stage kidney disease on dialysis. 4. Hyperlipidemia, on Zocor. 5. Type 2 diabetes, stable on Januvia. 6. Chronic hepatitis C. Planning for treatment with follow up potassium . The patient is going to transfer to the 1st floor and planning for dialysis tomorrow. We will check the SMA 7 prior to the dialysis. LEVEL OF DOCUMENTATION: 25 minutes. cc: Aftab Reece MD MTDD
[2019-08-23] MEDS: LOKELMA POWDER PACKET PO SCH (11:38)
[2019-08-23] MEDS: ZOCOR PO SCH (21:12)
[2019-08-24 04:36] VITALS: BP 130/72
[2019-08-24] MEDS: PRILOSEC PO SCH ×2 (05:49→07:02)
[2019-08-24] MEDS: HUMULIN R SUBQ SCH ×2 (06:03→12:14)
[2019-08-24] MEDS ORDERED: NS 2,000 ML MISC PRN (06:25)
[2019-08-24] MEDS ORDERED: HEPARIN IV PRN (06:25)
[2019-08-24] MEDS ORDERED: TIGHT: 0.2 ML/HR FOR DIALYSIS MISC PRN (06:25)
[2019-08-24 07:24] LABS: CALCIUM 9.5 mg/dL (8.8-10.2); POTASSIUM 5.3 mmol/L (3.5-5.1)
[2019-08-24 07:26] LABS: CREATININE 9.5 mg/dL (0.7-1.2)
--- NOTE | 2019-08-24 09:15 | NEPHROLOGY PROGRESS NOTE ---
DATE: 08/24/2019 TIME SEEN: 0710. SUBJECTIVE: Mr. Solomon is resting quietly in bed. Head of the bed is elevated. He has no complaints. LABORATORY DATA: Sodium 133, potassium is 5.3, chloride 90, CO2 of 26, BUN 50, creatinine 9.5, glucose is 99, anion gap is 17, calcium 9.5. Previous hemoglobin 15.4. OBJECTIVE: Vital Signs: Temperature is 97.7 degrees, blood pressure 130/72, heart rate 74, respirations 18. He is on room air. Last recorded saturation 95%. He has had 1382 in. He has had 0 recorded out. General: This is a 49-year-old, white male. He is resting quietly in bed. He appears in no acute distress. Skin: Warm and dry. HEENT: Normocephalic, atraumatic. Conjunctiva is pale pink. He has DIEGO. Mucous membranes moist. Neck: Supple. Trachea midline. He is without JVD. Cardiovascular: Regular rate and rhythm. He is without murmur or gallop. Lungs: Clear to auscultation bilaterally. Equal excursion on room air. Abdomen: Soft, nontender. Positive bowel sounds. Genitourinary: Not inspected. Minimal void with dialysis assist. Extremities: No edema. No clubbing or cyanosis. Left upper arm fistula with positive thrill, though there is a palpable hardness to the proximal portion of his left forearm AV fistula. Neurologic: Alert and oriented x3. ASSESSMENT AND PLAN: 1. Chronic kidney disease stage 5D. The patient is due for his routine dialysis treatment today. We will plan for this, and then possible discharge. 2. Electrolytes. The patient has had a history of hyperkalemia during this hospitalization. We will plan for him to be discharged with [facility]. We will attempt to have his arteriovenous fistula to the left forearm evaluated by [facility] for possible stenosis. The patient had a pre and post BUN performed with a URR of 54 liters. 3. Acid-base balance. This is acceptable. 4. Anemia. This is in target. I would like to thank you for allowing us to follow with this patient. Dictated by CHEMA Bar for Andrae Sage MD Face to face encounter, data reviewed, discussed with Zak Persaud on 08/24/19. I agree with the above assessment and plan of care. jennifer Baldwin#: [id number] cc: CHEMA Bar MD Jagan Reddy, MD MTDD
[2019-08-24] MEDS: PHOSLO PO SCH ×2 (12:14→12:57)
[2019-08-24] MEDS: APRESOLINE PO SCH ×2 (12:14→15:04)
[2019-08-24] MEDS: NEURONTIN PO SCH ×2 (12:15→13:20)
[2019-08-24] MEDS: WELLBUTRIN XL PO SCH ×2 (12:15→13:16)
[2019-08-24] MEDS: NORVASC PO SCH (12:15)
[2019-08-24] MEDS: HEMOCYTE PLUS CAPSULE PO SCH ×2 (12:16→13:16)
[2019-08-24] MEDS: JANUVIA PO SCH ×2 (12:16→13:16)
[2019-08-24] MEDS: COREG PO SCH (12:16)
--- NOTE | 2019-08-25 10:31 | DISCHARGE SUMMARY ---
ADMISSION DATE: 08/20/2019 DISCHARGE DATE: 08/24/2019 DISCHARGING DIAGNOSIS: Hyperkalemia with end-stage kidney disease due to malfunction of the AV graft. SECONDARY DIAGNOSES: 1. Hypertension. 2. Heart disease. 3. Type 2 diabetes. 4. Chronic active hepatitis C. 5. Hyperlipidemia. 6. Depression. CONSULTS: Dr. Sage. BRIEF HISTORY: Please see the H and P that was done by hospitalist. In brief. He is a 49-year- old white male with above problems was discovered potassium 7.[address] Mckeon. He has been under his care for treatment for hep C with Mavyret. HOSPITAL COURSE: He is not skipping the dialysis. The patient had dialysis and also given D50 followed by insulin, sodium bicarb, beta 2 agonist, calcium gluconate. I do not see any other etiology for causing the sudden spike of potassium. I spoke to Dr. Sage. Even though he is getting dialysis 3 times a week, there is some malfunction of the AV graft and he is going to arrange evaluation of the arteriovenous graft in [place]. He also given Lokelma 10 gram daily to lower the potassium for the time being. Rest of the hospital course was uneventful. LABS: CBC: White cell count 10, hematocrit 46, platelets 98,000. Sodium 133, potassium 5.3, BUN 50, creatinine 9.5. DISCHARGE INSTRUCTIONS: 1. Pneumococcal vaccine 23 was given 2015. Integra 1 tablet daily, Januvia 100 daily, ProAir 1 puff as needed, Bupropion 300 mg daily, Prilosec 40 mg daily, Coreg 25 p.o. b.i.d., amlodipine 10 daily, simvastatin 40 daily, Mavyret 100/40, 3 tablets daily as per Dr. Mckeon. Calcium acetate 667 3 tablets daily, Neurontin 300 p.o. b.i.d., hydralazine 100 t.i.d. Lokelma 10 mg daily. 2. Follow up with Dr. Sage as well as to my office. cc: MD Andrae Stockton MD Manish Arora, MD
== END 2019-08-24 16:17 | disposition home or self-care (01) | DRG 640 ==
LOC: ED 18:17 → EDIPHOLD 21:47 → SUATTDRO 21:47 → 2N 08-21 13:35 → 1N 08-24 12:26
PROVIDERS: ADMIT Internal Medicine; ATTEND Internal Medicine